=== PATIENT | male | born 1955 | race Caucasian/White ===

== ENCOUNTER → 2020-10-24 12:42 | Outpatient (REF) | payer OTHER, SELFPAY ==
--- NOTE | 2020-10-24 12:48 | CA_ITS ---
Transthoracic Echocardiogram Patient (Last, First, Middle): Daryl Muñoz G Gender: Male Date of : 1955 Age: 65 Procedure Date: 10/24/2020 Procedure Type: Transthoracic Echocardiogram Location: OP Height: 175.26 cm Weight: 97.52 kg BSA: 2.13 m2 Heart Rate: bpm BP: 137 / 82 mmHg Physical Testing Supervisor: ALEJANDRO Cavazos MD: Franklin Reis MD Tourist Camp Attendant: Sundar Velarde MD Symptoms: AFIB Study Quality: Good ECG Rhythm: Atrial Fibrillation Conclusions: - 1. Normal LV systolic function 2. Moderate biatrial enlargement 3. Normal cardiac valvular Doppler 4. Normal RV systolic pressure 5. No pericardial effusion Findings Left Ventricle Normal left ventricular size, thickness, and systolic function. The visually estimated ejection fraction is between 55-60%. Diastolic function is indeterminate on the basis of available data. Right Ventricle Normal right ventricular cavity size and systolic function. Atria Moderate biatrial enlargement. There is lipomatous hypertrophy of the interatrial septum. There is no evidence of interatrial shunt. Aortic Valve Normal aortic valve structure and function. There is no aortic valve stenosis. There is no aortic valve regurgitation. Mitral Valve Normal mitral valve structure and function. There is trace mitral valve regurgitation. There is no mitral valve stenosis. Pulmonic Valve The pulmonic valve was not well visualized. Tricuspid Valve Likely normal tricuspid valve structure and function. There is mild tricuspid valve regurgitation. The right ventricular systolic pressure is normal. The right ventricular systolic pressure is 21 mmHg. Normal right atrial pressure. There is no evidence of pulmonary hypertension. Great Vessels All visible segments of the aorta are normal in size. The pulmonary artery was not well visualized. Venous The inferior vena cava is normal in size and collapses greater than 50% with inspiration. Pericardium/Pleural There is no evidence of pericardial effusion. Prior Study Comparison No significant change compared to prior study dated: 11/19/2017. Measurements M-Mode Liner Measurements Normals - Women/Men AOV Cusps: 2.40 1.5-2.6 cm/m2 2D Linear Measurements IVSd: 0.97 0.6-0.9/0.6-1.0 cm LVIDd: 4.53 3.9-5.3/4.2-5.9 cm LVIDd Index: 2.13 2.4-3.2/2.2-3.1 cm/m2 LVIDs: 3.15 2.0-3.6 cm LVPWd: 0.95 0.7-1.1 cm Ao Root: 3.00 2.1-3.5 cm LA Diam: 3.80 2.7-3.8/3.0-4.0 cm LAIDs Index: 1.78 1.5-2.3 cm/m2 LV Mass: 182.13 67-162/88-224 g LV Mass Index: 85.51 43-95/49-115 g/m2 LVOT Diam: 2.00 3.0+(-)1.3 cm 2D Systolic Function EF 4C: 59.80 >55% EF 2C: 49.30 >55% Mitral Valve MV Pk E: 0.96 MV Decel Time: 187.00 PHT: 55.00 MVA PHT: 4.00 Decel Lucas: 5.15 Aortic Valve AoV Pk Toney: 1.04 AoV Pk Grad: 4.00 LVOT LVOT Pk Toney: 0.73 LVOT Mn Toney: 0.56 LVOT VTI: 0.15 LVOT Pk Grad: 2.00 LVOT Mn Grad: 1.00 LVOT Diam: 2.00 LVOT Area: 3.14 Diastolic Function MV Pk E: 0.96 Tricuspid Valve TR Pk Toney: 2.20 TR Pk Grad: 19.00 RA Press: 3.00 RVSP: 21.00 Great Vessels Aorta Ao Root-2D: 3.00 2.0-3.7 cm Ao Asc: 3.70 2.1-3.4 cm Ao Arch: 3.60 Pulmonary Valve PV Pk Toney: 1.11 Peak PV Grad: 5.00 Updated in Other Vendor System with Status of Final Sundar Velarde MD electronically signed on 10/25/2020 4:37:55 PM with status of Final
--- NOTE | 2020-10-24 12:49 | ECG_ITS ---
Hook-up date: 2020-10-24 13:40:00 Duration: :29:00 Test Indications: PERSISTANT AFIB Medications: [id number] QRS complexes 103 Ventricular ectopics which represent <1 % of total QRS comp. * Supraventricular ectopics which represent % of total QRS comp. * Paced QRS complexs which represent % of total QRS comp. VENTRICULAR ECTOPY 98 Isolated 0 Bigeminal Cycles 0 Couplets 0 Runs 0 Beats in Runs 0 Beats LONGEST at 0 BPM at :: -- 0 Beats FASTEST at 0 BPM at :: -- SUPRAVENTRICULAR ECTOPY * Isolated * Couplets * Runs * Beats in Runs * Beats LONGEST at * BPM at :: -- * Beats FASTEST at * BPM at :: -- HEART RATES 55 MIN at 04:10:44 2020-10-25 88 AVG 185 MAX at 17:16:41 2020-10-24 LONGEST RR 1.8400 secs at 09:07:53 2020-10-25 S-T LEVELS Channel 1 - 128 mm at 13:40:00 2020-10-24 - 128 mm at 13:40:00 2020-10-24 Channel 2 - 128 mm at 13:40:00 2020-10-24 - 128 mm at 13:40:00 2020-10-24 Channel 3 - 128 mm at 03:25:91 -- - 128 mm at 03:25:91 Basic rhythm Atrial fibrillation No long pause or profound bradycardia Borderline rate control with average HR of 88 bpm with HR as high as 185 bpm Rare Premature ventricular complexes No diary submitted Referred By: Franklin Reis Overread By: SANDRA GALEANO MD
== END ==
LOC: HO.CARD 12:42
PROVIDERS: PCP Internal Medicine; Visit Provider Internal Medicine
DX: I48.19 Other persistent atrial fibrillation (principal)
CPT/HCPCS: 93225; 93226; 93306

== ENCOUNTER → 2020-11-02 15:03 | Outpatient (BNVA) | payer OTHER, SELFPAY | PROVIDERS: PCP Internal Medicine; Visit Provider Internal Medicine | DX: I48.19 Other persistent atrial fibrillation (principal); Z79.01 Long term (current) use of anticoagulants | CPT/HCPCS: 93005 ==

== ENCOUNTER → 2021-02-22 13:13 | Outpatient (REF) | payer OTHER, SELFPAY ==
--- NOTE | 2021-02-22 13:17 | ECG_ITS ---
Hook-up date: 2021-02-22 13:29:00 Duration: 47:59:00 Test Indications: PERSISTANT AFIB Medications: [id number] QRS complexes 155 Ventricular ectopics which represent <1 % of total QRS comp. * Supraventricular ectopics which represent % of total QRS comp. * Paced QRS complexs which represent % of total QRS comp. VENTRICULAR ECTOPY 155 Isolated 0 Bigeminal Cycles 0 Couplets 0 Runs 0 Beats in Runs * Beats LONGEST at * BPM at :: -- * Beats FASTEST at * BPM at :: -- SUPRAVENTRICULAR ECTOPY * Isolated * Couplets * Runs * Beats in Runs * Beats LONGEST at * BPM at :: -- * Beats FASTEST at * BPM at :: -- HEART RATES 47 MIN at 02:38:59 2021-02-23 81 AVG 180 MAX at 14:44:59 2021-02-22 LONGEST RR 2.2160 secs at 02:38:53 2021-02-23 S-T LEVELS Channel 1 - 128 mm at 13:29:00 2021-02-22 - 128 mm at 13:29:00 2021-02-22 Channel 2 - 128 mm at 13:29:00 2021-02-22 - 128 mm at 13:29:00 2021-02-22 Channel 3 - 128 mm at 03:24:81 -- - 128 mm at 03:24:81 Basic rhythm Atrial fibrillation Adequate rate control, average HR of 81 bpm. 16% of time HR > 100 bpm with HR as high as 180 bpm. No long pause or profound bradycardia Occasional Premature ventricular complexes No diary submitted Referred By: Franklin Reis Overread By: SANDRA GALEANO MD
== END ==
LOC: HO.CARD 13:13
PROVIDERS: Visit Provider Internal Medicine
DX: I48.19 Other persistent atrial fibrillation (principal)
CPT/HCPCS: 93225; 93226

== ENCOUNTER → 2021-05-10 15:01 | Outpatient (BNVA) | payer OTHER, SELFPAY | PROVIDERS: PCP Internal Medicine; Referring Provider Internal Medicine; Visit Provider Internal Medicine ==

== ENCOUNTER 2021-05-14 15:04 | Outpatient (REF) | payer OTHER, SELFPAY ==
[2021-05-14 16:09] LABS: Anion Gap 13 (12-20); Blood Urea Nitrogen 17 mg/dL (9-16); Calcium 9.1 mg/dL (8.4-10.2); Carbon Dioxide 26 mmol/L (22-29); Chloride 105 mmol/L (96-108); Estimated Glomerular Filt Rate > 60; Glucose Random 81 mg/dL (60-115); Potassium 4.5 mmol/L (3.3-5.1); Sodium 139 mmol/L (135-145)
[2021-05-14 16:39] LABS: Digoxin < 0.3 ng/mL (0.8-2.0)
== END 2021-05-14 15:05 | disposition home or self-care (01) ==
LOC: HO.LAB 15:04
PROVIDERS: PCP Internal Medicine; Visit Provider Internal Medicine
DX: I48.19 Other persistent atrial fibrillation (principal); Z79.899 Other long term (current) drug therapy
CPT/HCPCS: 36415; 80048; 80162

== ENCOUNTER 2021-06-02 11:23 | Outpatient (REF) | payer OTHER, SELFPAY | END 2021-06-02 11:24 | disposition home or self-care (01) | LOC: HO.HMGCLDS 11:23 | PROVIDERS: PCP Internal Medicine; Visit Provider Internal Medicine | DX: Z20.822 Contact with and (suspected) exposure to COVID-19 (principal) | CPT/HCPCS: C9803; U0003; U0005 ==

== ENCOUNTER 2021-09-25 13:12 | Outpatient (REF) | payer MEDICARE, SELFPAY ==
[2021-09-25 13:24] LABS: MANUAL DIFF FLAG NO
[2021-09-25 13:55] LABS: Basophils Percent Auto 0.5 % (0-2); Hematocrit 44.4 % (42.0-52.0); Hemoglobin 15.4 g/dl (14.0-18.0); Imm Gran Abs Auto 0.03 X10*3/uL (0.00-0.03); Imm Gran Pct Auto 0.5 % (0.0-0.4); Lymphocytes Absolute Auto 1.5 X10*3/uL (1.2-4.9); Lymphocytes Percent Auto 24.1 % (20-40); Mean Corpuscular HGB Conc 34.7 g/dl (31.0-36.0); Mean Corpuscular Hemoglobin 30.9 pg (27.0-33.0); Mean Corpuscular Volume 89.2 fL (80.0-98.0); Mean Platelet Volume 9.2 fL (9.4-12.4); Monocytes Absolute Auto 0.7 X10*3/uL (0.1-1.2); Monocytes Percent Auto 10.7 % (2-11); Neutrophils Absolute Auto 3.9 x10*3/uL (2.0-8.3); Neutrophils Percent Auto 64.2 % (45-73); Platelet Count 215 X10*3/uL (160-400); Red Blood Count 4.98 X10*6/uL (4.60-5.80); Red Cell Distribution Width 11.9 % (11.0-16.0); White Blood Count 6.1 X10*3/uL (4.8-10.8)
[2021-09-25 14:30] LABS: Alanine Aminotransferase 21 U/L (0-40); Albumin Level 4.2 g/dL (3.5-5.0); Alkaline Phosphatase 55 U/L (39-117); Anion Gap 13 (12-20); Aspartate Amino Transferase 21 U/L (5-37); Blood Urea Nitrogen 15 mg/dL (9-16); Calcium 9.7 mg/dL (8.4-10.2); Carbon Dioxide 29 mmol/L (22-29); Chloride 103 mmol/L (96-108); Cholesterol 192 mg/dL; Estimated Glomerular Filt Rate > 60; Glucose Random 93 mg/dL (60-115); HDL Cholesterol 50 mg/dL; LDL Cholesterol Calculated 118 mg/dl; Magnesium 1.8 mg/dL (1.6-2.6); Potassium 4.7 mmol/L (3.3-5.1); Sodium 140 mmol/L (135-145); Total Protein 7.1 g/dL (6.5-8.0); Triglycerides 120 mg/dL
[2021-09-25 14:43] LABS: Prostate Specific Antigen Scr 0.61 ng/mL (<0.05-4.0); Thyroid Stimulating Hormone 0.95 uIU/mL (0.32-4.0)
[2021-09-25 14:57] LABS: Digoxin < 0.3 ng/mL (0.8-2.0)
[2021-09-25 15:41] LABS: Folate 18.3 ng/mL (> or = 4.0); Vitamin B12 313 pg/mL (200-900)
== END 2021-09-25 13:13 | disposition home or self-care (01) ==
LOC: HO.LAB 13:12
PROVIDERS: PCP Internal Medicine; Visit Provider Internal Medicine
DX: I48.20 Chronic atrial fibrillation, unspecified (principal); L30.9 Dermatitis, unspecified; E78.00 Pure hypercholesterolemia, unspecified
CPT/HCPCS: 36415; 80053; 80061; 80162; 82607; 82746; 83735; 84153; 84439; 84443; 85025

== ENCOUNTER → 2021-10-29 10:38 | Outpatient (REF) | payer MEDICARE, SELFPAY ==
--- NOTE | 2021-10-29 10:42 | HM_ITS ---
* Total monitoring time 2 days and 23 hours. * Underlying rhythm is atrial fibrillation. Average rate 74/Min. Range 46 to 189/Min. * About 6% of the time, rate greater than 100. No significant bradycardia. 12 pauses; longest 2.8 seconds during sleep hours. * Rare ventricular ectopy with minimal burden. Mostly isolated. 51 couplets. 4 very brief runs, longest 4 beats. Aberrant conduction cannot be excluded. * No patient events. * Less than optimal rate control of atrial fibrillation with evidence of rapid rates. MTDD
== END ==
LOC: HO.CARD 10:38
PROVIDERS: Visit Provider Internal Medicine
DX: I48.19 Other persistent atrial fibrillation (principal)
CPT/HCPCS: 93242

== ENCOUNTER → 2021-11-19 07:47 | Outpatient (BNVA) | payer MEDICARE, SELFPAY | PROVIDERS: PCP Internal Medicine; Referring Provider Internal Medicine; Visit Provider Internal Medicine | DX: I48.19 Other persistent atrial fibrillation (principal); Z79.01 Long term (current) use of anticoagulants | CPT/HCPCS: 93005; 99212 ==

== ENCOUNTER → 2021-12-31 09:32 | Outpatient (REF) | payer MEDICARE, SELFPAY | LOC: HO.SL 09:32 | PROVIDERS: PCP Internal Medicine; Visit Provider Internal Medicine | DX: G47.33 Obstructive sleep apnea (adult) (pediatric) (principal) | CPT/HCPCS: 95806 ==

== ENCOUNTER 2022-02-13 11:13 | Outpatient (REF) | payer MEDICARE, SELFPAY ==
[2022-02-13 11:23] LABS: MANUAL DIFF FLAG NO
[2022-02-13 11:56] LABS: Basophils Percent Auto 0.8 % (0-2); Eosinophils Percent Auto 0.2 % (0-4); Hematocrit 44.3 % (42.0-52.0); Hemoglobin 15.4 g/dl (14.0-18.0); Imm Gran Abs Auto 0.01 X10*3/uL (0.00-0.03); Imm Gran Pct Auto 0.2 % (0.0-0.4); Lymphocytes Absolute Auto 1.2 X10*3/uL (1.2-4.9); Lymphocytes Percent Auto 23.5 % (20-40); Mean Corpuscular HGB Conc 34.8 g/dl (31.0-36.0); Mean Corpuscular Volume 89.3 fL (80.0-98.0); Mean Platelet Volume 9.5 fL (9.4-12.4); Monocytes Absolute Auto 0.6 X10*3/uL (0.1-1.2); Monocytes Percent Auto 11.7 % (2-11); Neutrophils Absolute Auto 3.3 x10*3/uL (2.0-8.3); Neutrophils Percent Auto 63.6 % (45-73); Platelet Count 234 X10*3/uL (160-400); Red Blood Count 4.96 X10*6/uL (4.60-5.80); Red Cell Distribution Width 11.9 % (11.0-16.0); White Blood Count 5.2 X10*3/uL (4.8-10.8)
[2022-02-13 12:56] LABS: Alanine Aminotransferase 18 U/L (0-40); Alkaline Phosphatase 55 U/L (39-117); Anion Gap 11 (12-20); Aspartate Amino Transferase 19 U/L (5-37); Bilirubin Total 1.1 mg/dL (0.0-1.0); Blood Urea Nitrogen 19 mg/dL (9-16); Carbon Dioxide 28 mmol/L (22-29); Chloride 106 mmol/L (96-108); Estimated Glomerular Filt Rate > 60; Glucose Random 103 mg/dL (60-115); Potassium 4.8 mmol/L (3.3-5.1); Sodium 140 mmol/L (135-145); Total Protein 6.9 g/dL (6.5-8.0)
[2022-02-13 13:53] LABS: Digoxin 0.4 ng/mL (0.8-2.0)
== END 2022-02-13 11:14 | disposition home or self-care (01) ==
LOC: HO.LAB 11:13
PROVIDERS: PCP Internal Medicine; Visit Provider Internal Medicine
DX: I48.20 Chronic atrial fibrillation, unspecified (principal)
CPT/HCPCS: 36415; 80053; 80162; 85025

== ENCOUNTER → 2022-11-13 09:44 | Outpatient (REF) | payer MEDICARE, SELFPAY ==
--- NOTE | 2022-11-13 09:53 | CA_ITS ---
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 Low normal LV systolic function with LVEF 50-55% 2. Mildly reduced RV systolic function 3. Mildly dilated left atrium 4. Mild mitral calcification with normal cardiac valvular Doppler 5. Normal RV systolic pressure 6. No gross pericardial effusion Findings Left Ventricle Normal left ventricular cavity size. There is mildly increased left ventricular wall thickness. The left ventricular systolic function is low normal. The visually estimated ejection fraction is between 50-55%. Diastolic function is indeterminate on the basis of available data. Right Ventricle Normal right ventricular cavity size. There is mildly decreased right ventricular systolic function. Atria The left atrium is mildly dilated. There is lipomatous hypertrophy of the interatrial septum. There is no evidence of interatrial shunt. The right atrium is likely dilated. Aortic Valve The aortic valve structure and function is likely normal. There is no aortic valve stenosis. There is no aortic valve regurgitation. Mitral Valve There is mild anterior and posterior mitral leaflet thickening. There is mild mitral annular calcification. There is trace mitral valve regurgitation. Pulmonic Valve The pulmonic valve is likely normal. There is trace to mild pulmonic valve regurgitation. Tricuspid Valve There is trace tricuspid valve regurgitation. The right ventricular systolic pressure is normal. The right ventricular systolic pressure is 23 mmHg. There is no evidence of pulmonary hypertension. Great Vessels The pulmonary artery was not well visualized. There is mild dilatation of the ascending aorta measuring 3.90 cm. Venous The inferior vena cava is normal in size and collapses greater than 50% with inspiration. Pericardium/Pleural There is no evidence of pericardial effusion. Measurements 2D Linear Measurements IVSd: 1.23 0.6-0.9/0.6-1.0 cm LVIDd: 5.22 3.9-5.3/4.2-5.9 cm LVIDd Index: 2.49 2.4-3.2/2.2-3.1 cm/m2 LVIDs: 3.37 2.0-3.6 cm LVPWd: 0.89 0.7-1.1 cm LA Diam: 3.60 2.7-3.8/3.0-4.0 cm LAIDs Index: 1.71 1.5-2.3 cm/m2 LV Mass: 263.51 67-162/88-224 g LV Mass Index: 125.48 43-95/49-115 g/m2 LVOT Diam: 2.40 3.0+(-)1.3 cm 2D Systolic Function EF 4C: 50.80 >55% EF 2C: 51.80 >55% EF BiP: 50.60 >55% Mitral Valve MV Pk E: 0.93 MV Decel Time: 172.00 E'Lateral: 11.30 E'Medial: 7.83 E/E' Med: 11.90 E/E' Lat: 8.30 PHT: 51.00 MVA PHT: 4.[address] [place]: 5.42 Aortic Valve AoV Pk Toney: 0.89 AoV Pk Grad: 3.00 LVOT LVOT Pk Toney: 0.76 LVOT Mn Toney: 0.52 LVOT VTI: 0.14 LVOT Pk Grad: 2.00 LVOT Mn Grad: 1.00 LVOT Diam: 2.40 LVOT Area: 4.52 Diastolic Function MV Pk E: 0.93 E'Medial: 7.83 E/E' Med: 11.90 E' Laterial: 11.30 E/E' Lat: 8.30 Right Ventricle TAPSE (mm): 15.50 TVS' Toney: 9.10 Tricuspid Valve TR Pk Toney: 2.21 TR Pk Grad: 20.00 RA Press: 3.00 RVSP: 23.00 Great Vessels Aorta Sinus of Valsalva: 3.55 2.0-3.[address] [place]: 3.26 1.7-3.4 cm Ao Asc: 3.90 2.1-3.4 cm Updated in Other Vendor System with Status of Final Sundar Velarde MD electronically signed on 11/14/2022 1:23:01 PM with status of Final
== END ==
LOC: HO.CARD 09:44
PROVIDERS: PCP Internal Medicine; Visit Provider Internal Medicine
DX: I48.19 Other persistent atrial fibrillation (principal)
CPT/HCPCS: 93306

== ENCOUNTER → 2022-12-04 09:38 | Outpatient (BNVA) | payer MEDICARE, SELFPAY | PROVIDERS: PCP Internal Medicine; Referring Provider Internal Medicine; Visit Provider Internal Medicine | DX: I48.19 Other persistent atrial fibrillation (principal); Z79.01 Long term (current) use of anticoagulants | CPT/HCPCS: 93005; 99212 ==

== ENCOUNTER 2023-01-23 09:03 | Outpatient (REF) | payer MEDICARE, SELFPAY ==
[2023-01-23 09:13] LABS: MANUAL DIFF FLAG NO
[2023-01-23 09:32] LABS: Basophils Percent Auto 0.4 % (0-2); Hematocrit 43.1 % (42.0-52.0); Hemoglobin 14.8 g/dl (14.0-18.0); Imm Gran Abs Auto 0.02 X10*3/uL (0.00-0.03); Imm Gran Pct Auto 0.4 % (0.0-0.4); Lymphocytes Absolute Auto 1.2 X10*3/uL (1.2-4.9); Lymphocytes Percent Auto 21.4 % (20-40); Mean Corpuscular HGB Conc 34.3 g/dl (31.0-36.0); Mean Corpuscular Hemoglobin 31.4 pg (27.0-33.0); Mean Corpuscular Volume 91.3 fL (80.0-98.0); Mean Platelet Volume 9.1 fL (9.4-12.4); Monocytes Absolute Auto 0.7 X10*3/uL (0.1-1.2); Neutrophils Absolute Auto 3.5 x10*3/uL (2.0-8.3); Neutrophils Percent Auto 64.8 % (45-73); Platelet Count 210 X10*3/uL (160-400); Red Blood Count 4.72 X10*6/uL (4.60-5.80); Red Cell Distribution Width 12.2 % (11.0-16.0); White Blood Count 5.4 X10*3/uL (4.8-10.8)
[2023-01-23 11:15] LABS: Alanine Aminotransferase 20 U/L (0-40); Albumin Level 3.9 g/dL (3.5-5.0); Alkaline Phosphatase 46 U/L (39-117); Anion Gap 13 (12-20); Aspartate Amino Transferase 19 U/L (5-37); Bilirubin Total 1.3 mg/dL (0.0-1.0); Blood Urea Nitrogen 16 mg/dL (9-16); Calcium 9.1 mg/dL (8.4-10.2); Carbon Dioxide 25 mmol/L (22-29); Chloride 106 mmol/L (96-108); Cholesterol 161 mg/dL; Estimated Glomerular Filt Rate > 60; Free T4 (Free Thyroxine) 1.02 ng/dL (0.71-1.85); Glucose Random 103 mg/dL (60-115); HDL Cholesterol 55 mg/dL; LDL Cholesterol Calculated 93 mg/dl; Potassium 4.3 mmol/L (3.3-5.1); Prostate Specific Antigen Scr 1.14 ng/mL (<0.05-4.0); Sodium 140 mmol/L (135-145); Thyroid Stimulating Hormone 1.19 uIU/mL (0.32-4.0); Total Protein 6.7 g/dL (6.5-8.0); Triglycerides 67 mg/dL
[2023-01-23 11:17] LABS: Folate 15.4 ng/mL (> or = 4.0); Vitamin B12 212 pg/mL (200-900)
[2023-01-23 11:21] LABS: Digoxin < 0.2 ng/mL (0.8-2.0)
== END 2023-01-23 09:04 | disposition home or self-care (01) ==
LOC: HO.LAB 09:03
PROVIDERS: PCP Internal Medicine; Visit Provider Internal Medicine
DX: I48.20 Chronic atrial fibrillation, unspecified (principal); E78.00 Pure hypercholesterolemia, unspecified; Z12.5 Encounter for screening for malignant neoplasm of prostate
CPT/HCPCS: 36415; 80053; 80061; 80162; 82607; 82746; 84153; 84439; 84443; 85025

== ENCOUNTER 2023-02-27 14:11 | Outpatient (AMB) | payer MEDICARE, SELFPAY ==
[2023-02-27 14:22] VITALS: BP 130/74; PULSE 97; O2SAT 97; BMI 31.2
--- NOTE | 2023-02-27 14:22 | MHC.PC.OV ---
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 Required: No Allergies No Known Allergies [No Known Allergies*] Allergy (Verified 02/27/23 14:44) Medication List - Last Reconciled 02/27/23 by SAPPHIRE Agrawal apixaban (Eliquis) 5 mg PO BID 90 days digoxin 125 mcg PO DAILY 90 days metoprolol tartrate 25 mg PO BID 90 days Tobacco use date assessed: 02/27/23 Fall risk assessment: No Falls in past year Last assessed Fall Risk: 02/27/23 HPI night sweats and leg rash HPI Details Patient is a 67-year-old male who presents today for an office visit with intermittent night sweats at night since 2019, most likely started after being sick with COVID per pt. Patient of Dr. Feliciano. Medical history significant for AFib, obesity, BPH, ulcerative colitis, impaired fasting glucose among others. Patient reports that he has sweating only when he sleeps, he does not have any sweating during the day, does have some sweating when he works physically. Reports intermittent cough in the morning when waking up with sputum production, denies cough during the day, no hemoptysis. Denies fever or chills, denies weight loss. He is here for an evaluation. Patient did have blood work 01/23/2023 with no acute findings. Denies exposure to TB. Reports sleeping with heavy blankets on. PENDING SALE TO [facility] Medical History BPH (benign prostatic hyperplasia) Chronic atrial fibrillation residential current use of anticoagulant Obesity (BMI 30-39.9) Ulcerative colitis Surgical History History of cataract surgery History of vasectomy Family History Father Cancer Mother No problems noted. Social History Housing: House Alcohol intake: current Patient Tobacco Use Status: Former Tobacco user Quit Date: 1991 Smoked: 30 +/- quit 1989 e-Cigarette/Vaping Use: Never Used Second Hand Smoke Exposure: No Current occupational status: retired Cognitive needs: No Hearing needs: No Vision needs: Yes Questionnaire Thrive Questionnaire Date Thrive assessed: 01/31/23 AUDIT C Alcohol Use Questionnaire (AUDIT-C) 1. How often do you have a drink containing alcohol?: 2-4 times a month 2. How many drinks containing alcohol do you have on a typical day when you are drinking?: 1 or 2 3. How often do you have six or more drinks on one occasion?: Never Total Score: 2 Score Reviewed/Action Taken: No MARISA-7 AMB Questionnaire MARISA-7 Date MARISA - 7 assessed: 09/25/21 Source: Developed by Drs. Otf Gant, Mary Mehta, Deonte Cao and colleagues, with an educational pankaj from [employer]. Review of Systems Const Denies body aches, Denies chills, Denies fever(s), Denies headache(s) and Reports night sweats Eyes Denies change in vision ENT Denies dizziness, Denies otalgia, Denies headache(s), Denies nasal discharge, Denies sinus pain and Denies sore throat Card Denies chest pain, Denies edema, Denies lightheadedness and Denies dyspnea Resp Denies chest congestion, Denies cough, Denies hemoptysis, Denies dyspnea and Denies wheezing GI Denies abdominal pain Denies dysuria Musc Denies myalgias Skin/Breast Denies rash Neuro Denies dizziness and Denies headache(s) Aller/Immun Denies wheezing Physical exam (Primary Care) Vital Signs: Last Vital Signs Pulse 97 02/27/23 14:22 BP 130/74 02/27/23 14:22 Pulse Ox 97 02/27/23 14:22 Oxygen Delivery Method Room Air 02/27/23 14:22 BMI result Body Mass Index 31.2 Tobacco/Smoking Status: Tobacco use Status Tobacco use date assessed 02/27/23 02/27/23 14:26 Patient Tobacco Use Status Former Tobacco user 02/27/23 14:26 e-Cigarette/Vaping Use Never Used 02/27/23 14:26 Thrive Assessment: Date of Thrive Assessment Date Thrive assessed 01/31/23 02/27/23 14:26 Const General: cooperative and no acute distress Orientation/consciousness: patient oriented x3 HENMT Head: Yes normocephalic and Yes atraumatic Face and sinus: Yes sinuses nontender Mouth: oropharynx normal and moist mucous membranes Throat: Yes posterior oropharynx normal Eyes General: appearance normal, both eyes and all related structures Neck Neck: Yes normal visual inspection, Yes full ROM and Yes no lymphadenopathy Resp Effort & Inspection: normal respiratory effort and able to speak in complete sentences Auscultation: clear to auscultation bilaterally, no crackles, no rales, no rhonchi and no wheezes Cardio Rate: regular rate Rhythm: regular rhythm Heart sounds: S1 normal heart sound present and S2 normal heart sound present GI Auscultation: normal bowel sounds Skin General skin exam: no rashes or lesions noted Neuro General: patient oriented x3 Gait exam (Neuro): Normal gait present Extrem General: Yes full ROM and No edema Assessment and Plan Assessment & Plan (1) Screening for tuberculosis: Code(s): Z11.1 - Encounter for screening for respiratory tuberculosis Plan: Patient presents today with intermittent night sweats since 2019, recent blood work with no acute findings. Will screen for tuberculosis. Patient was advised to sleep with less blankets at night. Will notify of the test result. Patient agreed with the plan. Keep appointment with PCP as scheduled or follow-up sooner as needed. Orders: Orders T Spot TB Today Z11.1 - Encounter for screening for respiratory tuberculosis Coding Level of Care Code Est Pt Level 3 (08473) Diagnoses Screening for tuberculosis Z11.1
== END 2023-02-27 15:20 | disposition home or self-care (01) ==
PROVIDERS: PCP Internal Medicine; Visit Provider Nurse Practitioner Family
DX: Z11.1 Encounter for screening for respiratory tuberculosis (principal)
CPT/HCPCS: 99213

== ENCOUNTER 2023-02-27 14:56 | Outpatient (REF) | payer MEDICARE, SELFPAY ==
[2023-03-02 00:44] LABS: TS Negative Control Passed; TS Panel A 0; TS Panel B 0; TS Positive Control Passed; TSpotTB Negative (Negative)
== END 2023-02-27 14:57 | disposition home or self-care (01) ==
LOC: HO.LAB 14:56
PROVIDERS: PCP Internal Medicine; Visit Provider Nurse Practitioner Family
DX: Z11.1 Encounter for screening for respiratory tuberculosis (principal)
CPT/HCPCS: 36415; 86481

== ENCOUNTER 2023-08-06 09:28 | Outpatient (AMB) | payer MEDICARE, SELFPAY ==
[2023-08-06 09:30] VITALS: BP 120/90; PULSE 79; O2SAT 96; BMI 32.5
--- NOTE | 2023-08-06 09:30 | A.OFFPC_ITS ---
Vital Signs 08/06/23 09:30 08/06/23 10:30 Height 5 ft 9 in Weight 220 lb BMI 32.5 BP 120/90 H 124/80 Blood Pressure Location Lt brachial Lt brachial Position Sitting Sitting Pulse 79 Pulse Source Pulse Oximeter Pulse Oximetry (%) 96 Oxygen Delivery Method Room Air Intake Visit Reasons: IGT, A fib Benzene Still Utility Operator Required: No Accompanied by: Self / Same As Patient Allergies No Known Allergies [No Known Allergies*] Allergy (Verified 08/06/23 09:30) Medication List - Last Reconciled 08/06/23 by Daxa Feliciano MD apixaban (Eliquis) 5 mg PO BID 90 days digoxin 125 mcg PO DAILY 90 days metoprolol tartrate 25 mg PO BID 90 days Tobacco use date assessed: 02/27/23 Fall risk assessment: No Falls in past year Last assessed Fall Risk: 08/06/23 Dental Screening Dental Screen Date: 08/06/23 Did you have a dental visit in the last 12 months?: Yes Did you have a dental problem in the last 6 months where you did not have access to dental care?: No Was dental information given to patient?: Patient has dentist HPI IGT, A fib HPI Details 67-year-old obese male with atrial fibri llation ulcerative colitis BPH impaired glucose tolerance coming in for follow-up. Patient was last seen in January 2023. Patient's colonoscopy is up-to-date. state complains of sweating a lot, complains of dry mouth, mood instability, groin itchiness, sweatiness is better presently and deny groin rash, no frequency presently, thirsty a lot. 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 Social History Housing: House Alcohol intake: current Patient Tobacco Use Status: Former Tobacco user Quit Date: 1991 Years Smoked: 30 +/- quit 1989 e-Cigarette/Vaping Use: Never Used Second Hand Smoke Exposure: No Current occupational status: retired Cognitive needs: No Hearing needs: No Vision needs: Yes Questionnaire Thrive Questionnaire Date Thrive assessed: 01/31/23 MARISA-7 AMB Questionnaire MARISA-7 Date MARISA - 7 assessed: 09/25/21 Source: Developed by Drs. Otf Gant, Mary Mehta, Deonte Cao and colleagues, with an educational pankaj from [employer]. Physical exam (Primary Care) Vital Signs: Last Vital Signs Pulse 79 08/06/23 09:30 BP 120/90 H 08/06/23 09:30 Pulse Ox 96 08/06/23 09:30 Oxygen Delivery Method Room Air 08/06/23 09:30 BMI result Body Mass Index 32.5 Tobacco/Smoking Status: Tobacco use Status Tobacco use date assessed 02/27/23 08/06/23 09:32 Patient Tobacco Use Status Former Tobacco user 08/06/23 09:32 e-Cigarette/Vaping Use Never Used 08/06/23 09:32 Thrive Assessment: Date of Thrive Assessment Date Thrive assessed 01/31/23 08/06/23 09:32 Const General: alert; No acute distress Eyes Conjunctivae: conjunctivae normal Resp Auscultation: clear to auscultation bilaterally Cardio Rate: regular rate Rhythm: regular rhythm GI Inspection: Yes normal to inspection Extrem General: Yes normal to inspection and No edema Office Procedures Flu Questionnaire Does the patient have a severe egg allergy?: No Does the patient have severe life threatening allergies?: No Does the patient have a fever or illness today?: No Has the patient ever had Guillain-Keystone Syndrome?: No Has the patient ever had any past reaction to a flu shot?: No Immunizations flu vacc [id number] 6mos up(PF) 60 mcg(15 mcgx4)/0.5 mL IM syringe Performing Provider: Daxa Felciiano MD Performing Location: [facility] Administered by: VALERIANO Langford on 08/06/23 09:37 Dose Route Admin Location Dispensed Lot Number Expiration Date NDC Supervisor Blood [employer] 0.5 mL IM Left Deltoid 0.5 mL [id number] 02/08/24 93505-604-60 eegoes VIS Given Date VIS Provided VIS Publication Date 08/06/23 Single Vaccine 21 Eligibility Eligibility Date Funding Source Not [facility] Eligible 08/06/23 Private Assessment and Plan Assessment & Plan (1) Chronic atrial fibrillation: Comment: 2017 Dr. Reis Code(s): I48.20 - Chronic atrial fibrillation, unspecified Plan: Presently continue with anticoagulation and digoxin (2) Obesity (BMI 30-39.9): Code(s): E66.9 - Obesity, unspecified Plan: Diet and exercise (3) Ulcerative colitis: Comment: Dr. Mtz Code(s): K51.90 - Ulcerative colitis, unspecified, without complications Plan: Stable (4) BPH (benign prostatic hyperplasia): Comment: July 2019 Code(s): N40.0 - Benign prostatic hyperplasia without lower urinary tract symptoms Plan: Stable (5) Impaired fasting glucose: Code(s): R73.01 - Impaired fasting glucose Plan: Decrease the amount of carbohydrate intake, pasta, bread, rice and potatoes are all sugar and that is aside from all the sweet stuff, remember that fruits are good but they are Sweet also. (6) Hyperhidrosis: Code(s): R61 - Generalized hyperhidrosis Orders: Orders Thyroid Stimulating Hormone Today I48.20 - Chronic atrial fibrillation, unspecified B Type Natriuretic Peptide Today I48.20 - Chronic atrial fibrillation, unspecified Influenza [id number] Immunization Today Z23 - Encounter for immunization Free T4 (Free Thyroxine) Today I48.20 - Chronic atrial fibrillation, unspecified Magnesium Today I48.20 - Chronic atrial fibrillation, unspecified Coding Level of Care Code Est Pt Level 4 (29452) Diagnoses Chronic atrial fibrillation I48.20 Obesity (BMI 30-39.9) E66.9 Ulcerative colitis K51.90 BPH (benign prostatic hyperplasia) N40.0 Impaired fasting glucose R73.01 Hyperhidrosis R61
[2023-08-06 10:30] VITALS: BP 124/80
== END 2023-08-06 10:35 | disposition home or self-care (01) ==
PROVIDERS: PCP Internal Medicine; Visit Provider Internal Medicine
DX: I48.20 Chronic atrial fibrillation, unspecified (principal); K51.90 Ulcerative colitis, unspecified, without complications; E66.9 Obesity, unspecified; Z68.32 Body mass index [BMI] 32.0-32.9, adult; Z23 Encounter for immunization; N40.0 Benign prostatic hyperplasia without lower urinary tract symptoms; R73.01 Impaired fasting glucose; R61 Generalized hyperhidrosis
CPT/HCPCS: 90471; 90686; 99214

== ENCOUNTER 2023-08-06 10:41 | Outpatient (REF) | payer MEDICARE, SELFPAY ==
[2023-08-06 11:04] LABS: MANUAL DIFF FLAG NO
[2023-08-06 11:11] LABS: Basophils Percent Auto 0.3 % (0-2); Hematocrit 44.1 % (42.0-52.0); Hemoglobin 15.3 g/dl (14.0-18.0); Imm Gran Abs Auto 0.03 X10*3/uL (0.00-0.03); Imm Gran Pct Auto 0.5 % (0.0-0.4); Lymphocytes Absolute Auto 1.2 X10*3/uL (1.2-4.9); Lymphocytes Percent Auto 20.2 % (20-40); Mean Corpuscular HGB Conc 34.7 g/dl (31.0-36.0); Mean Corpuscular Hemoglobin 31.6 pg (27.0-33.0); Mean Corpuscular Volume 91.1 fL (80.0-98.0); Mean Platelet Volume 9.2 fL (9.4-12.4); Monocytes Absolute Auto 0.7 X10*3/uL (0.1-1.2); Monocytes Percent Auto 11.6 % (2-11); Neutrophils Percent Auto 67.4 % (45-73); Platelet Count 206 X10*3/uL (160-400); Red Blood Count 4.84 X10*6/uL (4.60-5.80); Red Cell Distribution Width 11.9 % (11.0-16.0); White Blood Count 5.9 X10*3/uL (4.8-10.8)
[2023-08-06 11:42] LABS: B Type Natriuretic Peptide 139 pg/mL (<100)
[2023-08-06 11:54] LABS: Alanine Aminotransferase 29 U/L (0-40); Alkaline Phosphatase 52 U/L (39-117); Anion Gap 12 (12-20); Aspartate Amino Transferase 24 U/L (5-37); Bilirubin Total 0.9 mg/dL (0.0-1.0); Blood Urea Nitrogen 18 mg/dL (9-16); Calcium 9.4 mg/dL (8.4-10.2); Carbon Dioxide 29 mmol/L (22-29); Chloride 104 mmol/L (96-108); Cholesterol 173 mg/dL (<200); Estimated Glomerular Filt Rate > 60; Glucose Random 111 mg/dL (60-115); HDL Cholesterol 60 mg/dL (>40); LDL Cholesterol Calculated 104 mg/dL (<100); Magnesium 1.9 mg/dL (1.6-2.6); Potassium 4.7 mmol/L (3.3-5.1); Sodium 140 mmol/L (135-145); Triglycerides 47 mg/dL (<150)
[2023-08-06 12:10] LABS: Free T4 (Free Thyroxine) 0.96 ng/dL (0.71-1.85); Thyroid Stimulating Hormone 0.81 uIU/mL (0.32-4.0)
[2023-08-06 12:22] LABS: Estimated Average Glucose 100 mg/dL; Hemoglobin A1c % 5.1 % (<6.0)
== END 2023-08-06 10:42 | disposition home or self-care (01) ==
LOC: HO.LAB 10:41
PROVIDERS: PCP Internal Medicine; Visit Provider Internal Medicine
DX: I48.20 Chronic atrial fibrillation, unspecified (principal); R73.01 Impaired fasting glucose; E78.00 Pure hypercholesterolemia, unspecified
CPT/HCPCS: 36415; 80053; 80061; 83036; 83735; 83880; 84439; 84443; 85025

== ENCOUNTER 2023-12-04 10:05 | Outpatient (AMB) | payer OTHER, SELFPAY ==
[2023-12-04 10:09] VITALS: BP 120/70; PULSE 82; O2SAT 98; BMI 68.7
--- NOTE | 2023-12-04 10:09 | A.OFFVIS_ITS ---
Vital Signs 12/04/23 10:09 Height 5 ft 9 in Weight 465 lb 2.806 oz BMI 68.7 BP 120/70 Blood Pressure Location Lt brachial Position Sitting Pulse 82 Pulse Source Monitor Pulse Oximetry (%) 98 Oxygen Delivery Method Room Air Intake Visit Reasons: 1 yr f/up Allergies No Known Allergies [No Known Allergies*] Allergy (Verified 08/06/23 09:30) Medication List - Last Reconciled 12/04/23 by Franklin Reis MD apixaban (Eliquis) 5 mg PO BID 90 days digoxin 125 mcg PO DAILY 90 days metoprolol tartrate 25 mg PO BID HPI Comments Details: Daryl returns for follow-up regarding atrial fibrillation. Detected around 2018. At that time, attempted cardioversion but not successful. Since then, has been essentially in atrial fibrillation on rate control. He is generally doing good. No cardiac symptoms whatsoever. In the past, excessive alcohol use but nothing recently. [facility] Medical History (Updated 08/06/23 @ 10:26 by Daxa Feliciano MD) Screening for tuberculosis intermediate current use of anticoagulant BPH (benign prostatic hyperplasia) Ulcerative colitis Obesity (BMI 30-39.9) Chronic atrial fibrillation Surgical History History of vasectomy History of cataract surgery Family History Father Cancer Mother No problems noted. Social History Housing: House Alcohol intake: current Patient Tobacco Use Status: Former Tobacco user Quit Date: 1991 Years Smoked: 30 +/- quit 1989 e-Cigarette/Vaping Use: Never Used Second Hand Smoke Exposure: No Current occupational status: retired Cognitive needs: No Hearing needs: No Vision needs: Yes Review of Systems Const Denies weakness ENT Denies dizziness Card Denies chest pain, Denies chest pain with activity, Denies syncope, Denies rapid heart rate, Denies pedal edema, Denies edema, Denies leg edema, Denies lightheadedness, Denies palpitations, Denies dyspnea, Denies dyspnea on exertion and Denies orthopnea Resp Denies cough, Denies dyspnea and Denies dyspnea on exertion GI Denies hematochezia and Denies change in stool character Musc Denies abnormal gait, Denies muscle cramps, Denies muscle weakness, Denies numbness, Denies radiating pain into limb and Denies tingling Neuro Denies abnormal gait, Denies dizziness, Denies syncope, Denies numbness, Denies tingling and Denies weakness Endo Denies palpitations Physical Exam Vital Signs: Last Vital Signs Pulse 82 12/04/23 10:09 BP 120/70 12/04/23 10:09 Pulse Ox 98 12/04/23 10:09 Oxygen Delivery Method Room Air 12/04/23 10:09 BMI result Body Mass Index 68.7 Const General: comfortable and no acute distress Orientation/consciousness: patient oriented x3 HEENT Other: Unremarkable Head: Yes normal to inspection Neck Neck: Yes normal visual inspection Chest Chest palpation & inspection: normal inspection of the chest Resp Auscultation: clear to auscultation bilaterally Cardio Palpation: normal PMI Heart sounds: S1 normal heart sound present, S2 normal heart sound present, no gallops, no murmurs and no rubs GI Palpation (GI): Soft to palpation Back/Spine/Pelvis Other: unremarkable Skin General skin exam: no rashes or lesions noted Neuro General: patient oriented x3 Extrem General: Yes normal to inspection Psych Mental Status: mental status grossly normal Office Procedures EKG Details: EKG shows atrial fibrillation with a ventricular rate of 82/Min; nonspecific T inversions in the inferior leads. [id number], Complete Assessment & Plan Assessment & Plan (1) Persistent atrial fibrillation: Code(s): I48.19 - Other persistent atrial fibrillation Category: Medical Plan: Continue metoprolol and digoxin. Sleep study in the past without any clear evidence of CELIA. 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 Stable renal function. Coding Level of Care Code Est Pt Level 3 (39520) Diagnoses Persistent atrial fibrillation I48.19 intermediate current use of anticoagulant Z79.01 CPT Codes EKG - CPT: 78682-[id number], Complete ([id number])
== END 2023-12-04 10:28 | disposition home or self-care (01) ==
PROVIDERS: PCP Internal Medicine; Visit Provider Internal Medicine
DX: I48.19 Other persistent atrial fibrillation (principal); Z79.01 Long term (current) use of anticoagulants
CPT/HCPCS: 93010; 99213

== ENCOUNTER → 2023-12-04 10:05 | Outpatient (BNVA) | payer OTHER, SELFPAY | PROVIDERS: PCP Internal Medicine; Visit Provider Internal Medicine | DX: I48.19 Other persistent atrial fibrillation (principal); Z79.01 Long term (current) use of anticoagulants; Z79.899 Other long term (current) drug therapy | CPT/HCPCS: 93005 ==

== ENCOUNTER 2024-06-01 11:03 | Outpatient (AMB) | payer OTHER, SELFPAY ==
[2024-06-01 11:09] VITALS: BP 120/64; PULSE 90; BMI 32.2
--- NOTE | 2024-06-01 11:09 | A.OFFVIS_ITS ---
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 Detected around 2018. At that time, attempted cardioversion but not successful. Since then, has been essentially in atrial fibrillation on rate control. Overall, he states he feels fine. No new issues. He used to have excessive alcohol use but he states these days he is not doing that. [facility] Medical History (Updated 08/06/23 @ 10:26 by Daxa Feliciano MD) Screening for tuberculosis jail current use of anticoagulant BPH (benign prostatic hyperplasia) Ulcerative colitis Obesity (BMI 30-39.9) Chronic atrial fibrillation Surgical History History of vasectomy History of cataract surgery Family History Father Cancer Mother No problems noted. Social History Housing: House Alcohol intake: current Patient Tobacco Use Status: Former Tobacco user Years Smoked: 30 +/- quit 1989 e-Cigarette/Vaping Use: Never Used Second Hand Smoke Exposure: No Current occupational status: retired Cognitive needs: No Hearing needs: No Vision needs: Yes Review of Systems Const Denies chills, Denies fatigue, Denies fever(s), Denies frequent falls, Denies weakness, Denies weight gain and Denies weight loss ENT Denies dizziness Card Denies chest pain, Denies leg edema, Denies lightheadedness, Denies palpitations, Denies dyspnea and Denies dyspnea on exertion Resp Denies cough, Denies dyspnea and Denies dyspnea on exertion GI Denies hematochezia Musc Denies abnormal gait, Denies muscle weakness, Denies numbness, Denies radiating pain into limb and Denies tingling Neuro Denies abnormal gait, Denies dizziness, Denies frequent falls, Denies numbness, Denies tingling and Denies weakness Endo Denies fatigue and Denies palpitations Physical Exam Vital Signs: Last Vital Signs Pulse 90 06/01/24 11:09 BP 120/64 06/01/24 11:09 BMI result Body Mass Index 32.2 Const General: comfortable and no acute distress Orientation/consciousness: patient oriented x3 HEENT Other: Unremarkable Head: Yes normal to inspection Neck Neck: Yes normal visual inspection Chest Chest palpation & inspection: normal inspection of the chest Resp Auscultation: clear to auscultation bilaterally Cardio Palpation: normal PMI Heart sounds: S1 normal heart sound present, S2 normal heart sound present, no gallops, no murmurs and no rubs GI Palpation (GI): Soft to palpation Back/Spine/Pelvis Other: unremarkable Skin General skin exam: no rashes or lesions noted Neuro General: patient oriented x3 Extrem General: Yes normal to inspection Psych Mental Status: mental status grossly normal Assessment & Plan Assessment & Plan (1) Persistent atrial fibrillation: Code(s): I48.19 - Other persistent atrial fibrillation Category: Medical Plan: Continue metoprolol and digoxin. Sleep study in the past without any clear evidence of CELIA. Check digoxin levels. Check Holter to evaluate for adequacy of rate control. Echocardiogram for any LV dysfunction. 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 Recheck labs. Plan Total time spent including review of data, counseling, documentation, coordination of care-31 minutes. Orders: Orders CA echo transthoracic complete Today I48.20 - Chronic atrial fibrillation, unspecified ECG 3 day holter monitor Today I48.20 - Chronic atrial fibrillation, unspecifi ed Digoxin Today I48.20 - Chronic atrial fibrillation, unspecified Complete Blood Count no Diff Today I48.20 - Chronic atrial fibrillation, unspec ified Basic Metabolic Panel Today I48.20 - Chronic atrial fibrillation, unspecified, I50.9 - Heart failure, unspecified Coding Level of Care Code Est Pt Level 4 (55373) Diagnoses Persistent atrial fibrillation I48.19 jail current use of anticoagulant Z79.01
== END 2024-06-01 11:25 | disposition home or self-care (01) ==
PROVIDERS: PCP Family Medicine; Visit Provider Internal Medicine
DX: I48.19 Other persistent atrial fibrillation (principal); Z79.01 Long term (current) use of anticoagulants
CPT/HCPCS: 99214

== ENCOUNTER → 2024-06-01 11:03 | Outpatient (BNVA) | payer OTHER, SELFPAY | PROVIDERS: PCP Family Medicine; Visit Provider Internal Medicine ==

== ENCOUNTER 2024-06-08 09:03 | Outpatient (REF) | payer MEDICARE, SELFPAY ==
[2024-06-08 10:08] LABS: Hematocrit 43.2 % (42.0-52.0); Hemoglobin 15.1 g/dl (14.0-18.0); Mean Corpuscular Hemoglobin 31.6 pg (27.0-33.0); Mean Corpuscular Volume 90.4 fL (80.0-98.0); Mean Platelet Volume 9.1 fL (9.4-12.4); Platelet Count 230 X10*3/uL (160-400); Red Blood Count 4.78 X10*6/uL (4.60-5.80); Red Cell Distribution Width 12.8 % (11.0-16.0); White Blood Count 4.9 X10*3/uL (4.8-10.8)
[2024-06-08 10:48] LABS: Anion Gap 12 (12-20); Blood Urea Nitrogen 15 mg/dL (9-16); Calcium 9.4 mg/dL (8.4-10.2); Carbon Dioxide 28 mmol/L (22-29); Chloride 106 mmol/L (96-108); Estimated Glomerular Filt Rate > 60; Glucose Random 101 mg/dL (60-115); Potassium 4.2 mmol/L (3.3-5.1); Sodium 142 mmol/L (135-145)
[2024-06-08 11:31] LABS: Digoxin < 0.2 ng/mL (0.8-2.0)
== END 2024-06-08 09:04 | disposition home or self-care (01) ==
LOC: HO.LAB 09:03
PROVIDERS: Visit Provider Internal Medicine
DX: I50.9 Heart failure, unspecified (principal); I48.20 Chronic atrial fibrillation, unspecified
CPT/HCPCS: 36415; 80048; 80162; 85027

== ENCOUNTER → 2024-06-25 12:33 | Outpatient (REF) | payer MEDICARE, SELFPAY ==
--- NOTE | 2024-06-25 12:36 | CA_ITS ---
Transthoracic Echocardiogram Patient (Last, First, Middle): Daryl Muñoz G Gender: Male Date of : 1955 Age: 68 Procedure Date: 06/25/2024 Procedure Type: Transthoracic Echocardiogram Location: OP Height: 175.26 cm Weight: 92.53 kg BSA: 2.08 m2 Heart Rate: 85 bpm BP: 118 / 70 mmHg Ware Dresser: SB Referring MD: Franklin Reis MD Symptoms: I48.20 - Chronic atrial fibrillation, unspecified Study Quality: Adequate ECG Rhythm: Atrial Fibrillation Conclusions: - Normal left ventricular size and systolic function. There is mildly increased left ventricular wall thickness. The visually estimated ejection fraction is between 55-60%. - There is mildly decreased right ventricular systolic function. - There is mild dilatation of the ascending aorta measuring 4.10 cm and mild dilatation of the aortic arch measuring 3.50 cm. Findings Left Ventricle Normal left ventricular size and systolic function. There is mildly increased left ventricular wall thickness. The visually estimated ejection fraction is between 55-60%. There is no evidence of regional wall motion abnormalities. Diastolic function is indeterminate on the basis of available data. Right Ventricle Normal right ventricular cavity size. There is mildly decreased right ventricular systolic function. Atria The left atrium is mildly dilated. The right atrium is mildly dilated. Aortic Valve Normal aortic valve structure and function. There is no aortic valve stenosis. There is no aortic valve regurgitation. Mitral Valve The mitral valve appears normal. There is moderate mitral annular calcification. There is trace mitral valve regurgitation. There is no mitral valve stenosis. Pulmonic Valve The pulmonic valve is normal. There is trace pulmonic valve regurgitation. Tricuspid Valve Normal tricuspid valve structure. There is no tricuspid valve regurgitation. Normal right atrial pressure. There is no evidence of pulmonary hypertension. Great Vessels There is mild dilatation of the ascending aorta measuring 4.10 cm and mild dilatation of the aortic arch measuring 3.50 cm. The visualized portions of the pulmonary artery and branches are normal. Venous The inferior vena cava is normal in size and collapses greater than 50% with inspiration. Pericardium/Pleural There is no evidence of pericardial effusion. Prior Study Comparison Changes noted compared to prior study dated: 11/13/2022. Normal LVEF. Mild dilation of aorta. Measurements 2D Linear Measurements IVSd: 0.95 0.6-0.9/0.6-1.0 cm LVIDd: 4.96 3.9-5.3/4.2-5.9 cm LVIDd Index: 2.38 2.4-3.2/2.2-3.1 cm/m2 LVIDs: 3.21 2.0-3.6 cm LVPWd: 0.87 0.7-1.1 cm LA Diam: 3.90 2.7-3.8/3.0-4.0 cm LAIDs Index: 1.88 1.5-2.3 cm/m2 LV Mass: 196.94 67-162/88-224 g LV Mass Index: 94.68 43-95/49-115 g/m2 LVOT Diam: 2.30 3.0+(-)1.3 cm 2D Systolic Function EF 4C: 56.90 >55% EF 2C: 52.10 >55% EF BiP: 54.70 >55% Mitral Valve MV Pk E: 0.88 Aortic Valve AoV Pk Toney: 0.89 AoV Pk Grad: 3.00 JOSE LUIS: 4.01 LVOT LVOT Pk Toney: 0.86 LVOT Mn Toney: 0.60 LVOT VTI: 0.16 LVOT Pk Grad: 3.00 LVOT Mn Grad: 2.00 LVOT Diam: 2.30 LVOT Area: 4.15 Diastolic Function MV Pk E: 0.88 Right Ventricle TAPSE (mm): 16.50 TVS' Toney: 8.49 Tricuspid Valve TR Pk Toney: 2.42 TR Pk Grad: 23.00 RA Press: 3.00 RVSP: 26.00 Great Vessels Aorta Sinus of Valsalva: 3.60 2.0-3.5 cm Ao Asc: 4.10 2.1-3.4 cm Ao Arch: 3.50 Pulmonary Valve PV Pk Toney: 0.85 Peak PV Grad: 3.00 Updated in Other Vendor System with Status of Final Anuel Stephenson MD electronically signed on 06/27/2024 7:52:20 PM with status of Final
== END ==
LOC: HO.CARD 12:33
PROVIDERS: PCP Family Medicine; Visit Provider Internal Medicine
DX: I48.20 Chronic atrial fibrillation, unspecified (principal)
CPT/HCPCS: 93306

== ENCOUNTER → 2024-06-25 12:36 | Outpatient (BNV) | payer MEDICARE, SELFPAY | PROVIDERS: PCP Family Medicine; Visit Provider Internal Medicine Cardiovascular Disease | DX: I34.81 Nonrheumatic mitral (valve) annulus calcification (principal); I48.20 Chronic atrial fibrillation, unspecified | CPT/HCPCS: 93306 ==

== ENCOUNTER 2024-10-25 05:56 | Day surgery (SDC) | payer MEDICARE, SELFPAY ==
[2024-10-21 13:35] VITALS: BMI 30.6
--- NOTE | 2024-10-22 10:12 | HO.ANESPROP2 ---
Documented by User: Ana Cordero NP 10/22/24 10:18 HPI - Anesthesia Eval Consult details Narrative: 69yo M for Colonoscopy Afib - eliquis/dig Follows [facility] [place] Cardiology [facility] Active Problems Active Problems: All Active Problems Hyperhidrosis (Acute) Impaired fasting glucose (Acute) Tinnitus (Acute) Annual physical exam (Acute) Neuropathy (Acute) Constipated (Acute) Eczema (Acute) prison current use of anticoagulant (Acute) BPH (benign prostatic hyperplasia) (Acute) Ulcerative colitis (Acute) Obesity (BMI 30-39.9) (Acute) Chronic atrial fibrillation (Acute) Past Medical History Medical History (Updated 08/06/23 @ 10:26 by Daxa Feliciano MD) Screening for tuberculosis prison current use of anticoagulant BPH (benign prostatic hyperplasia) Ulcerative colitis Obesity (BMI 30-39.9) Chronic atrial fibrillation Family History Family History Father Cancer Mother No problems noted. Surgical History Surgical History H/O colonoscopy Hx of bilateral cataract extraction History of vasectomy Social History Social History Housing: House Are you a primary home health care provider to a significant other at home: No Do you presently have visiting nurse or other home services: No Alcohol intake: current Alcohol intake frequency: does not drink Patient Tobacco Use Status: Former Tobacco user Years Smoked: 30 +/- quit 1989 e-Cigarette/Vaping Use: Never Used Second Hand Smoke Exposure: No Use of substances other than those prescribed or required for medical reasons: No Have you been hit, kicked, punched, or otherwise hurt by someone within the past year? If so, by whom?: No Are you DNR?: No Advance Directives: No Advance Directives Information Provided: Yes Recently lost weight without trying: No Nutrition Risks: No Nutritional Risk Poor oral hygiene: No Current occupational status: retired Cognitive needs: No Hearing needs: No Vision needs: Yes Meds Allergies Allergy/AdvReac Type Severity Reaction Status Date / Time No Known Allergies Allergy Verified 10/25/24 07:07 [No Known Allergies*] Home Medications ?Medication ?Instructions ?Recorded ?Confirmed ?Last Taken ?Type metoprolol tartrate 25 mg tablet 12.5 mg PO BID 10/21/24 10/25/24 10/24/24 History Exam Height,Weight and Vital Signs: Height 5 ft 9 in Weight 93.894 kg Narrative Narrative: ECHO 2023 Conclusions: - Normal left ventricular size and systolic function. There is mildly increased left ventricular wall thickness. The visually estimated ejection fraction is between 55-60%. - There is mildly decreased right ventricular systolic function. - There is mild dilatation of the ascending aorta measuring 4.10 cm and mild dilatation of the aortic arch measuring 3.50 cm. Assessment and Plan Assessment Anesthesia Assessment: Chart Reviewed Documented by User: Dennis Eubanks MD 10/25/24 07:25 [facility] Past Medical History Medical History (Updated 08/06/23 @ 10:26 by Daxa Feliciano MD) Screening for tuberculosis prison current use of anticoagulant BPH (benign prostatic hyperplasia) Ulcerative colitis Obesity (BMI 30-39.9) Chronic atrial fibrillation Family History Family History Father Cancer Mother No problems noted. Family history of problems with anesthesia: No Surgical History Surgical History H/O colonoscopy Hx of bilateral cataract extraction History of vasectomy History of Problems with Anesthesia: No Social History Social History Housing: House Are you a primary home health care provider to a significant other at home: No Do you presently have visiting nurse or other home services: No Alcohol intake: current Alcohol intake frequency: does not drink Patient Tobacco Use Status: Former Tobacco user Years Smoked: 30 +/- quit 1989 e-Cigarette/Vaping Use: Never Used Second Hand Smoke Exposure: No Use of substances other than those prescribed or required for medical reasons: No Have you been hit, kicked, punched, or otherwise hurt by someone within the past year? If so, by whom?: No Are you DNR?: No Advance Directives: No Advance Directives Information Provided: Yes Recently lost weight without trying: No Nutrition Risks: No Nutritional Risk Poor oral hygiene: No Current occupational status: retired Cognitive needs: No Hearing needs: No Vision needs: Yes Meds Allergies Allergy/AdvReac Type Severity Reaction Status Date / Time No Known Allergies Allergy Verified 10/25/24 07:07 [No Known Allergies*] Home Medications ?Medication ?Instructions ?Recorded ?Confirmed ?Last Taken ?Type metoprolol tartrate 25 mg tablet 12.5 mg PO BID 10/21/24 10/25/24 10/24/24 History Exam Airway Mallampati Class: II TM Dist: >3cm Neck ROM: Full Loose/Missing/Broken Teeth: Yes and Lower Heart: ok. chronic afib. Lungs: ok Assessment and Plan Assessment Anesthesia Assessment: Anesthesia Plan Discussed Final Anesthetic Review Family History of Problems with Anesthesia: No History of Problems with Anesthesia: No NPO: Yes ASA Class: III Final Preanesthetic Review: No Changes in Pt Med Stat, Meds/Allgs Chart Reviewed, Consent Obtained/Reviewed and Anes Risks/Benef Reviewed Patient Risk: Intermediate Procedure Risk: Low Anesthetic Plan Anesthetic Plan: MAC: and Agree w/ Assess. and Plan Disposition: Standard PACU
[2024-10-25 06:57] VITALS: BP 115/77; PULSE 88; RESP 14; TEMP 36.7; O2SAT 97; BMI 31.0
[2024-10-25] MEDS: Lactated Ringers 1,000 ML 100 ML IVCONT (07:06)
[2024-10-25 08:34] VITALS: BP 121/69; PULSE 95; RESP 17; TEMP 36.3; O2SAT 95
[2024-10-25 08:49] VITALS: BP 119/70; PULSE 84; RESP 18; O2SAT 97
--- NOTE | 2024-10-25 08:58 | OP_ITS ---
DATE OF SERVICE: 10/25/2024 SURGEON: Otf Mtz MD INDICATIONS: The patient presents for evaluation of colorectal cancer screening and an underlying history of long-standing ulcerative colitis. Full consent was obtained from him for this, including risks of bleeding and perforation. PREOPERATIVE DIAGNOSIS: POSTOPERATIVE DIAGNOSIS: PROCEDURE PERFORMED: Colonoscopy to cecum with multiple biopsies. ESTIMATED BLOOD LOSS: COMPLICATIONS: ANESTHESIA: Monitored anesthesia care. ASSISTANTS: SPECIMENS: PREOPERATIVE DIAGNOSES: Ulcerative colitis and colorectal cancer screening. POSTOPERATIVE DIAGNOSES: Ulcerative colitis and colorectal cancer screening, rule out dysplasia, pseudopolyps, sigmoid diverticulosis. DESCRIPTION OF PROCEDURE: The patient was placed in the left lateral decubitus position. The digital rectal exam revealed no abnormalities. There was no perianal disease. The Olympus video pediatric colonoscope was entered into the rectum and advanced to the cecum with the assistance of abdominal wall pressure. Once in the cecum, I did identify normal-appearing cecal pouch with appendiceal orifice and a normal-appearing ileocecal valve. The entire cecum and ileocecal valve appeared normal. The scope was slowly withdrawn assessing all mucosal surfaces carefully. Preparation was excellent. I did not visualize any sign of active colitis, suspicious polyps, nor angiodysplasias. There were scattered pseudopolyps, particularly in the sigmoid and descending colon. There were occasional areas of scarring, but for the most part, the colonic mucosa appeared normal. I did obtain multiple biopsies in the ascending colon, transverse colon, descending colon, sigmoid colon, and rectum. There was a mild amount of sigmoid diverticulosis. In the rectum, scope was retroflexed visualizing internal hemorrhoids, but no other pathology. The rectal mucosa appeared normal. Scope was straightened and withdrawn from the patient. He tolerated the procedure well and was returned to recovery area in stable condition. IMPRESSION: 1. History of ulcerative colitis, rule out dysplasia. 2. Diverticulosis. 3. Internal hemorrhoids. PLAN: The results of biopsy will be checked. If there is no dysplasia, I would recommend a repeat colonoscopy in 5 years. He will see me 1 or 2 years for followup office visit. He has presently been stable without any medication for his colitis for many years. He was advised to resume his Eliquis tomorrow and to continue to avoid all aspirin and NSAIDs long-term. MD CHARAN Anthony/OPAL / [phone]
--- NOTE | 2024-10-25 12:27 | PM.OP ---
Brief Operative Note Date of Service: 10/25/24 Pre-op diagnosis: Ulcerative colitis Post-op diagnosis: same Procedure: Colonoscopy to the cecum with biopsies Surgeon: Otf Mtz MD Anesthesia: MAC Was an Client Technical Specialist used for this Procedure?: No Estimated blood loss (mL): 2.0 Pathology: other (A. Ascending colon B. Transverse colon C. Descending colon D. Sigmoid colon E. Rectum) Condition: stable Disposition: PACU
== END 2024-10-25 09:28 | disposition home or self-care (01) ==
PROVIDERS: PCP Family Medicine; Visit Provider Internal Medicine
PROC: 0DJD8ZZ Inspection of Lower Intestinal Tract, Via Natural or Artificial Opening Endoscopic (ICD-10-PCS; CPT 45378; principal; 2024-10-25 07:30)
DX: Z12.11 Encounter for screening for malignant neoplasm of colon (principal); K62.1 Rectal polyp; K57.30 Diverticulosis of large intestine without perforation or abscess without bleeding; K64.8 Other hemorrhoids; I48.20 Chronic atrial fibrillation, unspecified; K51.90 Ulcerative colitis, unspecified, without complications; Z79.01 Long term (current) use of anticoagulants; Z79.899 Other long term (current) drug therapy; Z98.52 Vasectomy status
CPT/HCPCS: 45380; 88305; J2003; J2704; J3010

== ENCOUNTER 2024-11-24 10:02 | Outpatient (AMB) | payer MEDICARE, SELFPAY ==
--- NOTE | 2024-11-24 10:08 | MHC.OFFVIS ---
Vital Signs 11/24/24 10:09 Height 5 ft 9 in Weight 213 lb 13.574 oz BMI 31.6 BP 112/60 Blood Pressure Location Lt brachial Position Sitting Pulse 70 Pulse Source Monitor Intake Visit Reasons: 6 mth /fup Allergies No Known Allergies [No Known Allergies*] Allergy (Verified 10/25/24 07:07) Medication List - Last Reconciled 11/24/24 by Franklin Reis MD apixaban (Eliquis) 5 mg PO BID 90 days digoxin 125 mcg PO DAILY 90 days metoprolol tartrate 12.5 mg PO BID HPI Comments Details: Daryl returns for follow-up regarding atrial fibrillation. Detected around 2018. At that time, attempted cardioversion but not successful. Since then, has been essentially in atrial fibrillation on rate control. He used to have excessive alcohol use but he states these days he is not doing that. Overall, he feels good. No cardiac symptoms whatsoever. He wants to start riding his bicycle as the weather is improving. Exercise The patient expresses a desire to engage in bicycling again, citing its absence as a contributor to recent weight gain. He typically feels better after cycling and is motivated to resume this activity once medically cleared. 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 Social History Housing: House Are you a primary client care specialist to a significant other at home: No Do you presently have visiting nurse or other home services: No Alcohol intake: current Alcohol intake frequency: does not drink Patient Tobacco Use Status: Former Tobacco user Years Smoked: 30 +/- quit 1989 e-Cigarette/Vaping Use: Never Used Second Hand Smoke Exposure: No Current occupational status: retired Cognitive needs: No Hearing needs: No Vision needs: Yes Review of Systems Const Denies weakness ENT Denies dizziness Card Denies chest pain, Denies chest pain with activity, Denies syncope, Denies rapid heart rate, Denies pedal edema, Denies edema, Denies leg edema, Denies lightheadedness, Denies palpitations, Denies dyspnea, Denies dyspnea on exertion and Denies orthopnea Resp Denies cough, Denies dyspnea and Denies dyspnea on exertion GI Denies hematochezia and Denies change in stool character Musc Denies abnormal gait, Denies muscle cramps, Denies muscle weakness, Denies numbness, Denies radiating pain into limb and Denies tingling Neuro Denies abnormal gait, Denies dizziness, Denies syncope, Denies numbness, Denies tingling and Denies weakness Endo Denies palpitations Physical Exam Vital Signs: Last Vital Signs Pulse 70 11/24/24 10:09 BP 112/60 11/24/24 10:09 BMI result Body Mass Index 31.6 Const General: comfortable and no acute distress Orientation/consciousness: patient oriented x3 HEENT Other: Unremarkable Head: Yes normal to inspection Neck Neck: Yes normal visual inspection Chest Chest palpation & inspection: normal inspection of the chest Resp Auscultation: clear to auscultation bilaterally Cardio Palpation: normal PMI Heart sounds: S1 normal heart sound present, S2 normal heart sound present, no gallops, no murmurs and no rubs GI Palpation (GI): Soft to palpation Back/Spine/Pelvis Other: unremarkable Skin General skin exam: no rashes or lesions noted Neuro General: patient oriented x3 Extrem General: Yes normal to inspection Psych Mental Status: mental status grossly normal Office Procedures EKG Details: EKG with underlying atrial fibrillation at 70/Min; rightward axis; inferior T inversions. [id number]-[id number], Complete Assessment & Plan Assessment & Plan (1) Persistent atrial fibrillation: Code(s): I48.19 - Other persistent atrial fibrillation Category: Medical Plan: Continue metoprolol and digoxin. Sleep study in the past without any clear evidence of CELIA. In the last echocardiogram, LVEF is 55-60%. Mildly depressed right ventricular systolic function. Left atrium mildly dilated. 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 Plan Due to the EKG findings of inferior T inversions in his plan to start riding his bicycle, we can plan on exercise stress test to assess further. Total time spent including review of data, counseling, documentation, coordination of care-32 minutes. Orders: Orders CA stress test Today I48.20 - Chronic atrial fibrillation, unspecified, R07.2 - Precordial pain NM cardiolite stress test Today I48.20 - Chronic atrial fibrillation, unspecified, R07.2 - Precordial pain Patient Instructions: - Schedule the stress test as instructed. - Plan to resume cycling post-clearance from stress test results. - To contact us with any ongoing concerns or cardiac symptoms. Coding Level of Care Code Est Pt Level 4 (22434) Complex EM visit Add On G2211 Diagnoses Persistent atrial fibrillation I48.19 [facility] current use of anticoagulant Z79.01 CPT Codes EKG - CPT: 92374-Wobinxrgltvqdhrob, Complete ([id number])
[2024-11-24 10:09] VITALS: BP 112/60; PULSE 70; BMI 31.6
--- OUTSIDE RECORDS SUMMARY | 2024-11-24 11:34 | XMS_ITS ---
Author Organization [facility] Address [address] [place] [id number] Care Team Providers Care Digital Marketing Officer Name Role Phone JEF ESPINAL, VITALIY Primary Care Provider Unavailab Vitaliy Garcia Unavailable [phone] Allergies No Known Allergies REASON FOR VISIT Patient presents today for a COLON SCREENING Medications Medication SIG (Take, Route, Frequency, Duration) Notes Start Date End Date Status Eliquis 5 MG TAKE 1 TABLET BY CAROL TH TWICE A DAY Oral once a day Active Metoprolol Tartrate 25 MG 1/2 tablet wit h food Orally Twice a day Active Digoxin 125 MCG 1 tablet Orally for 30 day(s) Active Social History Alcohol Screen Question Answer Notes Did you have a drink containing alcohol in the p ast year? No Points 0 Interpretation Negative Section Notes: Nonsmoker; occasional alcoho l Vital Signs Blood pressure systolic 00 mm Hg 06/29/20 24 Blood pressure diastolic 00 mm Hg 024 Height 69 in 06/29/2024 Weight 207 lbs 06/29/2024 BMI 30.57 kg/m2 06/29/2024 Encounters Encounter Location Date Provider Diagnosis [facility] [address] [place] [id number] 06/29/2024 Vitaliy Mtz Ulcerative colitis without complications, unspecified location K51.90 and Encounter for screening for malignant neoplasm of colon Z12.11 Assessments Encounter Date Diagnosis (ICD Code) Assessment Notes Treatment Notes Treatment Clinical Notes Section Notes 06/29/2024 Ulcerative colitis without complications, unspecified location (ICD-10 - K51.90) Stop the Eliquis for 3 days before the colonoscopy. Overall, Daryl appears quite well. His underlying ulcerative colitis remains in clinical remission on no specific treatment. As such, we will continue to observe things In that regard. I did recommend a followup colonoscopy for further screening given his long-standing history of ulcerative colitis and his last colonoscopy being over 5 years ago. We did review the rationale for that regard to colorectal cancer prevention and/or early detection. Full consent was obtained for this, including risks of bleeding and perforation. The procedure will be done monitored anesthesia care. He was given the below instructions regarding adjustment of his medications for the procedure. Daryl was comfortable with this plan. Thank you again for allowing me to participate in Daryl's care. I shall continue to keep you advised of his progress. 06/29/2024 Encounter for screening for malignant neoplasm of colon (ICD-10 - Z12.11) Overall, Daryl appears quite well. His underlying ulcerative colitis remains in clinical remission on no specific treatment. As such, we will continue to observe things In that regard. I did recommend a followup colonoscopy for further screening given his long-standing history of ulcerative colitis and his last colonoscopy being over 5 years ago. We did review the rationale for that regard to colorectal cancer prevention and/or early detection. Full consent was obtained for this, including risks of bleeding and perforation. The procedure will be done monitored anesthesia care. He was given the below instructions regarding adjustment of his medications for the procedure. Daryl was comfortable with this plan. Thank you again for allowing me to participate in Daryl's care. I shall continue to keep you advised of his progress. Plan Of Treatment Treatment Notes Assessment Notes Ulcerative colitis without c omplications, unspecified location Stop the Eliquis for 3 days before the colonoscopy. Future Test Test Name Order Date COLONOSCOPY 06/29/2024 Next Appt Details Follow Up: prn, Reason: Progress Notes * DARYL BEEDOB: [birth year] (68 yo M)Acc No.[id number]:06/29/2024 Progress Notes Patient:?DARYL BEE Provider:?Vitaliy Mtz MD :1955???Age:68 Y???Sex:Male Thee e:06/29/2024 Address:[address] [place] [address] Pcp:VITALIY FUCHS MD Subjective: * Chief Complaints: * ???Patient presents today fo r a COLON SCREENING * HPI: ???incontinence:? I saw Daryl in the office today for evaluation of his underlying history of ulcerative colitis and discussion of colorectal cancer screening. ?I last saw Daryl in August of 2022 at which time we had reviewed his history of underlying ulcerative colitis. Since that time has been doing very well and is not on any specific medication for his colitis. He has not been on any medications for his colitis for well over a decade now. His bowel movements have remained very regular without any signs of bleeding. He denies any significant diarrhea. He enjoys a good appetite and denies any history of heartburn or dysphagia. He denies any nausea, vomiting, nor early satiety. He denies abdominal pain, signs of jaundice, nor unintentional weight loss. He denies any known family history of colorectal cancer. ?Laboratories at the end of May revealed a normal CBC, normal chemistries, and normal renal function. He had a normal liver profile in July of 2023. His last colonoscopy screening was in November of 2018, at which time there was no evidence of any polyps, active colitis, nor any dysplasia on the biopsies. * ROS:?General/Constitutional:?Change in appetite?denies.?Chills?denies.?Fatigue?denies.?Ophthalmologic:?Patient denies? Negative..?ENT:?Patient denies?Negative..?Respiratory:?Patient denies?No coughing/hemoptysis..?Cardiovascular:?Patient denies? No chest pain/orthopnea..?Gastrointestinal:?Comments?See HPI for details.?Genitourinary:?Patient denies? No dysuria/hematuria..?Musculoskeletal:?Patient denies? No specific arthralgias/myalgias..?Skin:?Patient denies?No rash/pruritus..?Neurologic:?Patient denies? No headaches/seizures..?Psychiatric:?Patient denies?Negative..? * Medical History:? * Surgical History:?vasectomy left eye cataract 4right eye cataract * Hospitalization/Major Diagno stic Procedure:?No Hospitalization History. * Family History:?Father: dece ased.?Mother: 92 yrs, afib.?Siblings: The patient has two siblings with some type of colitis.Afib.? No hx of colon cancer. Sister has colitis . * Social History:?Tobacco Use:?Tobacco Use/Smoking?Are you a: nonsmoker.?Drugs/Alcohol:?Alcohol Screen?Did you have a drink containing alcohol in the past year??No,?Points?0,?Interpretation?Negative.?Miscellaneous:?Marital status: . Occupation: [employer]/ retired jun 2021. ???Nonsmoker; occasional alcohol. * Medications:?TakingDigoxin 1 25 MCG Tablet 1 tablet Orally Metoprolol Tartrate 25 MG Tablet 1/2 tablet with food Orally Twice a dayEliquis 5 MG Tablet TAKE 1 TABLET BY MOUTH TWICE A DAY Oral once a dayTaking Digoxin 125 MCG Tablet 1 tablet Orally Taking Metoprolol Tartrate 25 MG Tablet 1/2 tablet with food Orally Twice a dayTaking Eliquis 5 MG Tablet TAKE 1 TABLET BY MOUTH TWICE A DAY Oral once a dayDiscontinuedTriamcinolone Acetonide 0.5 % Cream 1 application Externally Two times a WeekMedication List reviewed and reconciled with the patientDiscontinued Triamcinolone Acetonide 0.5 % Cream 1 application Externally Two times a WeekMedication List reviewed and reconciled with the patient * Allergies:?N.K.D.A.yes[Aller gies Verified] Objective: * Vitals:?Wt: 207 lbs, Ht: 69 in, BMI:30.57 Index, BP: 00/00 mm Hg. * Examination: ???General Examination: ?GENERAL APPEARANCE:?pleasant, well nourished, well developed, in no acute distress.?EYES:?sclera non-icteric.?ORAL CAVITY:?mucosa moist.?NECK/THYROID:?no cervical lymphadenopathy, neck supple.?SKIN:?nonjaundiced, no spider angiomata..?HEART:?S1, S2 normal.?LUNGS:?clear to auscultation bilaterally.?ABDOMEN:?normal bowel sounds, no guarding or rigidity, no hepatosplenomegaly, no masses palpable, soft, nontender, nondistended..?EXTREMITIES:?no edema.?NEUROLOGIC:?alert and oriented.? Assessment: * Assessment: 1.?Ulcerative colitis withou t complications, unspecified location - K51.90 (Primary)?2.?Encounter for screening for malignant neoplasm of colon - Z12.11? Overall, Daryl appears quit e well. His underlying ulcerative colitis remains in clinical remission on no specific treatment. As such, we will continue to observe things In that regard. I did recommend a followup colonoscopy for further screening given his long-standing history of ulcerative colitis and his last colonoscopy being over 5 years ago. We did review the rationale for that regard to colorectal cancer prevention and/or early detection. Full consent was obtained for this, including risks of bleeding and perforation. The procedure will be done monitored anesthesia care. He was given the below instructions regarding adjustment of his medications for the procedure. Daryl was comfortable with this plan. Thank you again for allowing me to participate in Daryl's care. I shall continue to keep you advised of his progress. Plan: * Treatment: Notes: Stop the Eliquis for 3 days before the colonoscopy.??2.?Encounter for screening for malignant neoplasm of colon?Procedure: COLONOSCOPY (Ordered for 06/29/2024)* with MACsched for 10/25/24 at 7:30 ammiralax * Procedure Codes:?3017F COLOR ECTAL CA SCREEN DOC [id number] TOBACCO [id number] BP SCR NOT PRFRM REC REASON NOS * Preventive Medicine:? ??Counseling:?Care goal follow-up plan:?Above Normal BMI Follow-up?Giving encouragement to exercise,?BMI management provided?Yes.? ??Screenings:?Fall Risk Screening?Fall Risk Assessment:?No falls in the past year,?Screening:?No falls in the past year,?Assessment:?Not performed, no reason specified,?Plan of Care:?Not documented, no reason specified.? * Follow Up:?prn * * Sign off status: Completed true * Provider:?Vitaliy Mtz MD Date:? 024 Generated for Pedro perla/Ashlyn/eTransmitting on:?11/24/2024 11:33 AM EDT History and Physical Notes * HPI (History of Present Illness) Category Sub-Category Detail Notes Category Not es incontinence I saw Daryl in the office today for evaluation of his underlying history of ulcerative colitis and discussion of colorectal cancer screening. I last saw Daryl in August of 2022 at which time we had reviewed his history of underlying ulcerative colitis. Since that time has been doing very well and is not on any specific medication for his colitis. He has not been on any medications for his colitis for well over a decade now. His bowel movements have remained very regular without any signs of bleeding. He denies any significant diarrhea. He enjoys a good appetite and denies any history of heartburn or dysphagia. He denies any nausea, vomiting, nor early satiety. He denies abdominal pain, signs of jaundice, nor unintentional weight loss. He denies any known family history of colorectal cancer. Laboratories at the end of May revealed a normal CBC, normal chemistries, and normal renal function. He had a normal liver profile in July of 2023. His last colonoscopy screening was in November of 2018, at which time there was no evidence of any polyps, active colitis, nor any dysplasia on the biopsies. Examination Category Sub-Category Detail Notes Category Not es General Examination GENERAL APPEARANCE: pleasant , well nourished, well developed, in no acute distress EYES: sclera non-icteric NECK/THYROID: no cervical lymphade nopathy, neck supple HEART: S1, S2 normal LUNGS: clear to auscultatio n bilaterally ABDOMEN: normal bowel sounds, no guarding or rigidity, no hepatosplenomegaly, no masses palpable, soft, nontender, nondistended. NEUROLOGIC: alert and oriented SKIN: nonjaundiced, no spi radha angiomata. EXTREMITIES: no edema ORAL CAVITY: mucosa moist
--- OUTSIDE RECORDS SUMMARY | 2024-11-24 11:34 | XMS_ITS ---
Author Organization [facility] Address [address] [place] [phone] Care Team Providers Care Crime Scene Photographer Name Role Phone VITALIY FUCHS MD Primary Care Provider UnavailVitaliy [facility] [phone] REASON FOR VISIT ulcerative colitis, screening Encounters Encounter Location Date Provider Diagnosis [facility] Outpatient [address], [place] [phone] 10/25/2024 Vitaliy Mtz Colon cancer scree greyson [...] * HARDY BEEDOB: [birth year] (69 yo M)Acc No.[id number]:10/25/2024 COLON WITH MAC Patient:?HARDY BEE Provider:Naomi Mtz MD :1955???Age:69 Y???Sex:Male Thee e:10/25/2024 Address:[address] [place], [place] [address] Pcp:VITALIY FUCHS MD Subjective: * Chief Complaints: * ???1. Ulcerative colitis, sc amarilis. * Medical History:? Objective: * Vitals:? Assessment: * Assessment: 1.?Colon cancer screening - Z12.11 (Primary)???2.?Ulcerative colitis - K51.90???3.?Diverticulosis of large intestine without perforation or abscess without bleeding - K57.30???4.?Other hemorrhoids - K64.8??? Plan: * Treatment: * Procedure Codes:?39075 COLON OSCOPY AND BIOPSY, Modifiers: PT , 0529F INTRVL 3+YRS PTS CLNSCP DOCD, 0528F RCMND FLW-UP 10 YRS DOCD * * The named appointment provid er may or may not be the originator of this progress note, and it is not deemed complete until electronically signed by the appointment provider. Sign off status: Pending * Provider:?Vitaliy Mtz MD Date:? 025 Generated for Pedro perla/Ashlyn/Kearaitting on:?11/24/2024 11:34 AM EDT
--- OUTSIDE RECORDS SUMMARY | 2024-11-24 11:34 | XMS_ITS | Patient Health Record ---
Author Organization [facility] Address [address] [place] [address] Care Team Providers Care Accounting/Finance Tutor Name Role Phone VITALIY HOLLINGSWORTH MD Primary Care Provider UnavailVitaliy Schulte Unavailable [phone] Allergies No Known Allergies Results Component Value Reference Range Notes Pathology (Not yet reviewed by provider) Interpretation: Performing Lab:[facility], [address] [place] [phone] Notes/Report: Name: Daryl Muñoz Age/Sex: 69/M : 1955 Unit#: [id number] Attend Dr: Vitaliy Mtz MD Re10/25/24 Status : [facility] Location: [facility] Disch: SPEC : [id number] REC STATUS: CASEY FAJARDO NUM: [id number] REGINE: 10/25/[address] [facility] [address]: Vitaliy Mtz MD ENTERED: 10/25/24 SP TYPE: Surgical OTHR DR: Vitaliy Hollingsworth DO ORDERED: HE Stain/15 , Gross Micro L4/5 Diagnosis A. Colon, ascending, biopsy: Colonic mucosa with no specific change; no colitis, granulomas or dysplasia. B. Colon, transverse , biopsy: Colonic mucosa with no specific change; no colitis, granulomas or dysplasia. C. Colon, descending , biopsy: Colonic mucosa with no specific change; no colitis, granulomas or dysplasia. D. Colon, sigmoid, b iopsy: Colonic mucosa with no specific change; no colitis, granulomas or dysplasia. E. Colon, rectum, bi opsy: Hyperplastic polyp, and colonic mucosa with no specific change; no colitis/p roctitis, granulomas or dysplasia (endoscopic correlation necessary). Clinical History Pre-Op Dx: Screening , ulcerative colitis Post-Op Dx: Ulcerati ve colitis, diverticulosis Microscopic Description Microscopic sections reviewed. Material Received A. Ascending colon b x's, h/o ulcerative colitis, r/o dysplasia B. Transverse colon bx's, h/o ulcerative colitis, r/o dysplasia C. Descending colon bx's, h/o ulcerative colitis, r/o dysplasia D. Sigmoid colon bx' s, h/o ulcerative colitis, r/o dysplasia E. Rectal colon bx's , h/o ulcerative colitis, r/o dysplasia Gross Description Received in five parts. Part A: Received in formalin labeled ?ascending colon bx's, history ulcerative colitis, rule out dysplasia? are 7 granda irregular tissue fragments ranging from 0.15-0.2 cm, submitted in toto in a cassette labeled A. Part B: Received in formalin labeled ?transverse colon bx's history ulcerative colitis, rule out dysplasia are several granda and granda-pink irregular and rectangular tissue fragments CONTINUED ON NEXT PAGE Name: Daryl Muñoz Age/Sex: 69/M : 1955 Unit#: [id number] Attend Dr: Vitaliy Mtz MD Re10/25/24 Status : [facility] Location: [facility] Disch: SPEC : [id number] RECD : 10/25/24 STATUS: CASEY [facility] NUM: [id number] REGINE: 10/25/[address] [facility] [address]: Vitaliy Mtz MD ENTERED: 10/25/24- 32 SP TYPE: Surgical OTHR DR: Vitaliy Hollingsworth DO ORDERED: HE Stain/15 , Gross Micro L4/5 Gross Description (Continued) ranging from 0.1 to 0.35 cm, submitted in toto in a cassette labeled C. Part C: Received in formalin labeled ?descending colon bx's, history ulcerative colitis, rule out dysplasia? are several granda and granda-pink irregular tissue fragments ranging from minute to 0.25 cm, s ubmitted in toto in a cassette labeled C. Part D: Received in formalin labeled ?sigmoid bx's, history ulcerative colitis, rule out dysplasia? a re 7 granda and granda-pink irregular and rectangular tissue fragments ranging from minute to 0.3 cm, matta bmitted in toto in a cassette labeled D. Part E: Received in formalin labeled ?rectal bx's, history ulcerative colitis, rule out dysplasia? a re are 5 granda and granda-pink irregular and rectangular tissue fragments ranging from 0.15-0.4 cm, matta bmitted in toto in a cassette labeled E. CEDS Copies To: Vitaliy [address] [place] [id number] Vitaliy Mtz MD [address] [place] [id number] Signed (si gnature on file) Sowmya Ralf 10/26/24 1152 END OF REPORT Reason For Referral No Information Medications Medication SIG (Take, Route, Frequency, Duration) Notes Start Date End Date Status Eliquis 5 MG TAKE 1 TABLET BY [facility] TWICE A DAY Oral once a day Active Metoprolol Tartrate 25 MG 1/2 tablet wit h food Orally Twice a day Active Digoxin 125 MCG 1 tablet Orally for 30 day(s) Active Immunizations Vaccine Route Administration Date Status Comme nts Influenza Unknown 04/11/2022 Administered Influenza Unknown 09/10/2018 Refused Social History Alcohol Screen Question Answer Notes Did you have a drink containing alcohol in the p ast year? No Points 0 Interpretation Negative Section Notes: Nonsmoker; occasional beer a nd cigar Nonsmoker; occasional alcoho l Nonsmoker; occasional alcoho l Nonsmoker; occasional alcoho l Problems Problem Type SNOMED Code ICD Code Onset Dates Problem Status W/U Status Risk Notes Problem 560224527 Encounter for screening for malignant neoplasm of colon (Z12.11) Active confirmed Problem 68918200 Ulcerative colitis without complications, unspecified location (K51.90) Active confirmed Vital Signs Blood pressure diastolic 00 mm Hg 06/29/2024 Height 69 in 06/29/2024 Blood pressure systolic 00 mm Hg 06/29/2024 Weight 207 lbs 06/29/2024 BMI 30.57 kg/m2 06/29/2024 Encounters Encounter Location Date Provider Diagnosis [facility] [place] [address] [place], [place] [phone] 10/25/2024 Vitaliy Mtz Colon cancer screeni ng Z12.11 ; Ulcerative colitis K51.90 ; Diverticulosis of large intestine without perforation or abscess without bleeding K57.30 and Other hemorrhoids K64.8 [facility] [address] [place] [address] 06/29/2024 Vitaliy Mtz Ulcerative colitis without complications, unspecified location K51.90 and Encounter for screening for malignant neoplasm of colon Z12.11 Assessments Encounter Date Diagnosis (ICD Code) Assessment Notes Treatment Notes Treatment Clinical Notes Section Notes 10/25/2024 Colon cancer screening (ICD-10 - Z12.11) 10/25/2024 Ulcerative colitis (ICD-10 - K51.90) 06/29/2024 Encounter for screening for malignant neoplasm [...] keep you advised of his progress. 06/29/2024 Ulcerative colitis without complications, unspecified location [...] to keep you advised of his progress. 10/25/2024 Diverticulosis of large intestine without perforation or abscess without bleeding (ICD-10 - K57.30) 10/25/2024 Other hemorrhoids (ICD-10 - K64.8) Plan Of Treatment Pending Test Test Name Order Date Pathology 10/25/2024 Future Test Test Name Order Date COLONOSCOPY 04/22/2013 COLONOSCOPY 09/10/2018 COLONOSCOPY 06/29/2024 Insurance Providers Payer Name Payer Address Payer Phone Subscriber Number Group Number Insured Name Patient Relationship to Insured Coverage Start Date Coverage End Date [facility] [address] [place] [address] [id number] CRISTALDARYL Self - patient is the insured Medical (General) History Medical History History ICD Code Most recent colonoscopy Apr was negative for any active colitis, polyps, and all biopsies were negative for dysplasia. Ulcerative colitis diagnosed at age 26-- on Azulfidine until approx. 2006 Denies [place],DM,CVA,Lung disease,renal dise ase Hx of [id number]. Reis Colonoscopy in 11/2018--no ad enomas, no dysplasia--no active colitis; there were some inflammatory polyps and pseudopolyps Surgical History Surgery Date(Month/Year) vasectomy left eye cataract 2023 right eye cataract
== END 2024-11-24 10:33 | disposition home or self-care (01) ==
PROVIDERS: PCP Family Medicine; Visit Provider Internal Medicine
DX: I48.19 Other persistent atrial fibrillation (principal); Z79.01 Long term (current) use of anticoagulants
CPT/HCPCS: 93010; 99214; G2211

== ENCOUNTER → 2024-11-24 10:02 | Outpatient (BNVA) | payer MEDICARE, SELFPAY | PROVIDERS: PCP Family Medicine; Visit Provider Internal Medicine | DX: I48.19 Other persistent atrial fibrillation (principal); R07.2 Precordial pain; Z79.01 Long term (current) use of anticoagulants | CPT/HCPCS: 93005; 99212 ==

== ENCOUNTER → 2025-01-21 08:26 | Outpatient (REF) | payer MEDICARE, SELFPAY ==
--- NOTE | ~2025-01-21 | NM_ITS ---
EXERCISE MYOCARDIAL PERFUSION STUDY INDICATION: Precordial chest pain to evaluate for myocardial ischemia TECHNIQUE: The patient was brought in for an exercise perfusion study on 01/21/2025. Patient performed exercise as per Vincent protocol and was injected 30 mCi of sestamibi once target heart rate was achieved. Images were obtained using the SPECT gamma camera interlaced with the gating device. Images were obtained in supine position. Resting perfusion study was performed on 01/24/2025. Patient was administered [30 mCi of sestamibi intravenously at rest. Images were then obtained in supine position. Images were processed with the software and compared side to side in short axis, horizontal long axis and vertical long axis views. FINDINGS: Raw images were reviewed The stress perfusion study showed nonattenuated images show mildly reduced uptake in the distal anterior and adjacent anterolateral wall of the LV myocardium. Attenuated corrected images show similar findings.. The gated study was not performed with stress. LV cavity is normal in size. Resting study shows no change in perfusion pattern compared to stress perfusion study. Gating at rest reveals normal systolic wall motion with ejection fraction at 74%. The findings are consistent with normal myocardial perfusion. NM/NM cardiolite stress test IMPRESSION: 1. Myocardial perfusion imaging study shows normal myocardial perfusion. 2. Gated LVEF is 74%. 3. Transient ischemic dilatation not present. EKG revealed shows no ischemia. Electronically signed by: Sundar Velarde MD 01/24/2025 04:06 PM EDT
--- OUTSIDE RECORDS SUMMARY | 2025-01-21 08:33 | XMS_ITS | Patient Health Record ---
Author Organization [facility] Address [address] [place] [address] Care Team Providers Care Load Checker Name Role Phone VITALIY HOLLINGSWORTH MD Primary Care Provider UnavailVitaliy Schulte Unavailable [phone] Allergies No Known Allergies Results Component Value Reference Range Notes Pathology (Not yet reviewed by provider) Interpretation: Performing Lab:[facility] [place], [address] [place] [phone] Notes/Report: Name: Daryl Muñoz Age/Sex: 69/M : 1955 Unit#: [id number] Attend Dr: Vitaliy Mtz MD Re10/25/24 Status : [facility] Location: [facility] Disch: SPEC : [id number] REC STATUS: CASEY FAJARDO NUM: [id number] REGINE: 10/25/24 [facility] DR: Vitaliy Mtz MD ENTERED: 10/25/24 [...] Daryl Muñoz Age/Sex: 69/M : 1955 Unit#: [id number] Attend Dr: Vitaliy Mtz MD Re10/25/24 Status : [facility] Location: [facility] Disch: SPEC : [id number] RECD : 10/25/24 STATUS: [facility]Y [facility] NUM: [id number] REGINE: 10/25/24 [facility] DR: Vitaliy Mtz MD ENTERED: 10/25/24- [...] Copies To: Vitaliy [address] [place] [id number] Vitaliy Mtz MD [address] [place] [id number] Signed (si gnature on file) Sowmya [place] 10/26/24 1152 END OF REPORT Reason For Referral No Information Medications Medication SIG (Take, Route, Frequency, Duration) Notes Start Date End Date Status Eliquis 5 MG TAKE 1 TABLET BY [facility] TWICE A DAY Oral once a [...] Problem Status W/U Status Risk Notes Problem [id number] Encounter for screening for malignant neoplasm of colon (Z12.11) Active confirmed Problem 06910828 Ulcerative colitis without complications, unspecified location (K51.90) Active confirmed Vital Signs Blood pressure diastolic 00 mm Hg 06/29/2024 Height 69 in 06/29/2024 Blood pressure systolic 00 mm Hg 06/29/2024 Weight 207 lbs 06/29/2024 BMI 30.57 kg/m2 06/29/2024 Encounters Encounter Location Date Provider Diagnosis [facility] [place] [address] [place], [place] [phone] 10/25/2024 Vitaliy Mtz Colon cancer screeni ng Z12.11 ; Ulcerative colitis K51.90 ; Diverticulosis of large intestine without perforation or abscess without bleeding K57.30 and Other hemorrhoids K64.8 [facility] [address] [place] [address] 06/29/2024 Vitaliy Mtz Ulcerative colitis without complications, [...] Insured Coverage Start Date Coverage End Date [facility] [address] [place] [address] [id number] CRISTALDARYL Self - patient is the insured Medical (General) History Medical History History ICD Code Most recent colonoscopy Apr was negative for any active colitis, polyps, and all biopsies were negative for dysplasia. Ulcerative colitis diagnosed at age 26-- on Azulfidine until approx. 2006 Denies [place],DM,CVA,Lung disease,renal dise ase Hx of [id number]. Reis Colonoscopy in 11/2018--no ad enomas, no dysplasia--no active colitis; there were some inflammatory polyps and pseudopolyps Surgical History Surgery Date(Month/Year) vasectomy left eye cataract 2023 right eye cataract
--- NOTE | 2025-01-21 08:38 | CA_ITS ---
Acquisition Time: 2025-01-21 09:04:19 Total Exercise Time: 00:05:31 Test Indications: CHEST PAIN Medications: SEE CHART Protocol: ROSE Max HR: 166 BPM 110% of Pred: 150 BPM Max BP: 160/68 mmHG Max Work Load: 7.0 METS Exercise stress test with exercise 5 mins 31 secs of Rose Protocol, achieving 112% MPHR, with reports of mild SOB, no chest pain, with isolated PVCs, ventricular couplets, with normotensive response to exercise. Without EKG changes meeting criteria for ischemia. Baseline Afib. In recovery, breathing returned to baseline. Nuclear images pending. Test reviewed with Dr. Velarde. Referred By: Franklin Reis Electronically Signed By: Luis Shaffer
== END ==
LOC: HO.CARD 08:26
PROVIDERS: Visit Provider Internal Medicine
DX: R07.2 Precordial pain (principal); I48.20 Chronic atrial fibrillation, unspecified
CPT/HCPCS: 78452; 93017; A9500

== ENCOUNTER → 2025-01-21 08:38 | Outpatient (BNV) | payer MEDICARE, SELFPAY | DX: R07.2 Precordial pain (principal) | CPT/HCPCS: 78452; 93016; 93018 ==

== ENCOUNTER 2025-05-31 10:11 | Outpatient (AMB) | payer MEDICARE, SELFPAY ==
--- OUTSIDE RECORDS SUMMARY | 2024-10-25 03:30 | XMS_ITS ---
Author Organization [facility] Address [address] [place] [id number] Care Team Providers Care Speck Dyer Name Role Phone VITALIY FUCHS MD Primary Care Provider Vitaliy Fung [facility] [phone] REASON FOR VISIT ulcerative colitis, screening Encounters Encounter Location Date Provider Diagnosis [facility] [place] Outpatient [address], [place] [id number] 10/25/2024 Vitaliy Mtz Colon cancer scree greyson [...] * HARDY BEEDOB: 5 (69 yo M)Acc No.[id number]:10/25/2024 COLON WITH MAC Patient: Sumeet HARDY COMER Provider: Deann Mtz MD :1955 A ge:69 Y S ex:Male Date:10/25/2024 Address:[address] [place] [address] [id number] Pcp:VITALIY FUCHS MD Subjective: * Chief Complaints: [...] 10/25/2024 Generated for Pedro perla/Ashlyn/Eliudsmitting on: 1 11:58 AM EDT
[2025-05-31 10:12] VITALS: BP 114/60; PULSE 71; BMI 31.0
--- NOTE | 2025-05-31 10:12 | MHC.OFFVIS ---
Vital Signs 05/31/25 10:12 Height 5 ft 9 in Weight 209 lb 14.081 oz BMI 31.0 BP 114/60 Blood Pressure Location Lt brachial Pulse 71 Pulse Source Pulse Oximeter Intake Visit Reasons: 6 month f/up stress test Complementary Health Therapists Required: No Accompanied by: Self / Same As Patient Allergies No Known Allergies (No Known Allergies*) Allergy (Verified 05/31/25 10:15) Medication List - Last Reconciled 05/31/25 by Franklin Reis MD apixaban (Eliquis) 5 mg PO BID 90 days digoxin 125 mcg PO DAILY 90 days metoprolol tartrate 25 mg PO BID HPI Comments Details: Daryl returns for follow-up regarding atrial fibrillation. Detected around 2018. At that time, attempted cardioversion but not successful. Since then, has been essentially in atrial fibrillation on rate control. He used to have excessive alcohol use but he states these days he is not doing that. Since last seen, he states he is feeling good. No new concerns. He is also exercising regularly without any issues. [facility] Medical History (Updated 05/31/25 @ 10:22 by Franklin Reis MD) Screening for tuberculosis prison current use of anticoagulant BPH (benign prostatic hyperplasia) Ulcerative colitis Obesity (BMI 30-39.9) Chronic atrial fibrillation Surgical History H/O colonoscopy Hx of bilateral cataract extraction History of vasectomy Family History Father Cancer Mother No problems noted. Social History Housing: House Are you a primary home visit field care manager to a significant other at home: No Do you presently have visiting nurse or other home services: No Alcohol intake: current Alcohol intake frequency: does not drink Patient Tobacco Use Status: Former Tobacco user Years Smoked: 30 +/- quit 1989 e-Cigarette/Vaping Use: Never Used Second Hand Smoke Exposure: No Current occupational status: retired Cognitive needs: No Hearing needs: No Vision needs: Yes Review of Systems Const Denies daytime sleepiness, Denies difficulty sleeping, Denies snoring, Denies stops breathing during sleep and Denies weakness Card Denies chest pain, Denies rapid heart rate, Denies irregular heart rhythm, Denies claudication, Denies leg edema, Denies lightheadedness, Denies palpitations, Denies dyspnea, Reports dyspnea on exertion, Denies orthopnea, Denies paroxysmal nocturnal dyspnea and Denies slow heart rate Resp Denies cough, Denies dyspnea, Reports dyspnea on exertion and Denies snoring GI Reports no additional complaints, Denies hematochezia, Denies change in stool character and Denies dyspepsia Musc Denies abnormal gait, Denies muscle weakness and Denies numbness Neuro Denies abnormal gait, Denies numbness and Denies weakness Endo Denies palpitations Physical Exam Vital Signs: Last Vital Signs Pulse 71 05/31/25 10:12 BP 114/60 05/31/25 10:12 BMI result Body Mass Index 31.0 Const General: comfortable and no acute distress Orientation/consciousness: patient oriented x3 HEENT Other: Unremarkable Head: Yes normal to inspection Neck Neck: Yes normal visual inspection Chest Chest palpation & inspection: normal inspection of the chest Resp Auscultation: clear to auscultation bilaterally Cardio Palpation: normal PMI Heart sounds: S1 normal heart sound present, S2 normal heart sound present, no gallops, no murmurs and no rubs GI Palpation (GI): Soft to palpation Back/Spine/Pelvis Other: unremarkable Skin General skin exam: no rashes or lesions noted Neuro General: patient oriented x3 Extrem General: Yes normal to inspection Psych Mental Status: mental status grossly normal Assessment & Plan Assessment & Plan (1) Persistent atrial fibrillation: Code(s): I48.19 - Other persistent atrial fibrillation Category: Medical Plan: Continue metoprolol and digoxin. Continue Eliquis. Sleep study in the past without any clear evidence of CELIA. In the last echocardiogram, LVEF is 55-60%. Mildly depressed right ventricular systolic function. Left atrium mildly dilated. Check digoxin level. Check BMP. Check Holter before next visit. (2) prison current use of anticoagulant: Code(s): Z79.01 - prison (current) use of anticoagulants Category: Medical Plan: Remains on Eliquis. (3) Ascending aorta enlargement: Code(s): I77.89 - Other specified disorders of arteries and arterioles Category: Medical Plan: In the echocardiogram, ascending aortic size 4.1 cm. Are size 3.5 cm. Recheck before next visit. Plan Discussion Notes During the visit, we discussed the patient's exercise tolerance and cardiovascular health. I recommended follow-up blood work. The patient was advised to withhold digoxin before the blood test to ensure accurate results. Patient was informed and verbally consented to the use of an ambient scribe for clinic note documentation during this visit. Orders: Orders Basic Metabolic Panel Today I48.20 - Chronic atrial fibrillation, unspecified Digoxin Today I48.20 - Chronic atrial fibrillation, unspecified CA echo transthoracic complete 1 Year I77.89 - Other specified disorders of arteries and arterioles ECG 3 day holter monitor 1 Year I48.20 - Chronic atrial fibrillation, unspecified Patient Instructions: - Schedule blood work and echocardiogram as recommended. - Do not take digoxin on the morning of the blood test. - Continue regular exercise but monitor heart rate. Coding Level of Care Code Est Pt Level 4 (30332) Complex EM visit Add On G2211 Diagnoses Persistent atrial fibrillation I48.19 prison current use of anticoagulant Z79.01 Ascending aorta enlargement I77.89
--- OUTSIDE RECORDS SUMMARY | 2025-05-31 11:58 | XMS_ITS | Patient Health Record ---
Author Organization [facility] Address [address] [place] [address] Care Team Providers Care Pad Tufter Name Role Phone VITALIY FUCHS MD Primary Care Provider Vitaliy Fung Unavailable [phone] Allergies No Known Allergies Results Component Value Reference Range Notes Pathology (Not yet reviewed by provider) Interpretation: Performing Lab:[facility], [address] [place] [phone] Notes/Report: Reason For Referral No Information Medications Medication SIG (Take, Route, Frequency, Duration) Notes Start Date End Date Status Eliquis 5 MG TAKE 1 TABLET BY [facility] TWICE A DAY Oral once a day Active Metoprolol Tartrate 25 MG 1/2 tablet wit h food Orally Twice a day Active Digoxin 125 MCG 1 tablet Orally; Dur ation: 30 day(s) Active Immunizations Vaccine Route Administration [...] Problem Status W/U Status Risk Notes Problem Screening for malignant neoplasm of colon (811803948) Encounter for screening for malignant neoplasm of colon (Z12.11) Active confirmed Problem Ulcerative colitis (67894429) Ulcerative colitis without complications, unspecified location (K51.90) Active confirmed Vital Signs Blood pressure diastolic 00 mm Hg 06/29/2024 Height 69 in 06/29/2024 Blood pressure systolic 00 mm Hg 06/29/2024 Weight 207 lbs 06/29/2024 BMI 30.57 kg/m2 06/29/2024 Encounters Encounter Location Date Provider Diagnosis [facility] [place] [address] [place] [phone] 10/25/2024 Vitaliy Mtz Colon cancer screeni ng Z12.11 ; Ulcerative colitis K51.90 ; Diverticulosis of large intestine without perforation or abscess without bleeding K57.30 and Other hemorrhoids K64.8 [facility] [address] [place] [address] 06/29/2024 Vitaliy Mtz Ulcerative colitis without complications, [...] Insured Coverage Start Date Coverage End Date [facility] [address] [place] [address] [id number] DARYL BEE Self - patient is the insured Medical (General) History Medical History History ICD Code Most recent colonoscopy Apr was negative for any active colitis, polyps, and all biopsies were negative for dysplasia. Ulcerative colitis diagnosed at age 26-- on Azulfidine until approx. 2005 Denies [place],DM,CVA,Lung disease,renal dise ase Hx of [id number]. Reis Colonoscopy in 11/2018--no ad enomas, no dysplasia--no active colitis; there were some inflammatory polyps and pseudopolyps Surgical History Surgery Date(Month/Year) vasectomy left eye cataract 2023 right eye cataract
== END 2025-05-31 10:26 | disposition home or self-care (01) ==
PROVIDERS: PCP Physician Assistant; Visit Provider Internal Medicine
DX: I48.19 Other persistent atrial fibrillation (principal); Z79.01 Long term (current) use of anticoagulants; I77.89 Other specified disorders of arteries and arterioles
CPT/HCPCS: 99214; G2211

== ENCOUNTER → 2025-05-31 10:11 | Outpatient (BNVA) | payer MEDICARE, SELFPAY | PROVIDERS: PCP Physician Assistant; Visit Provider Internal Medicine | DX: I48.19 Other persistent atrial fibrillation (principal); G47.33 Obstructive sleep apnea (adult) (pediatric); Z99.89 Dependence on other enabling machines and devices; Z79.01 Long term (current) use of anticoagulants; I77.89 Other specified disorders of arteries and arterioles | CPT/HCPCS: 99212 ==

== ENCOUNTER 2025-06-01 13:16 | Outpatient (REF) | payer MEDICARE, SELFPAY ==
--- OUTSIDE RECORDS SUMMARY | 2024-10-25 03:30 | XMS_ITS ---
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 Name Role Phone VITALIY FUCHS MD Primary Care Provider Vitaliy Fung [facility] [phone] REASON FOR VISIT ulcerative colitis, screening Encounters Encounter Location Date Provider Diagnosis [facility] [place] [place] Outpatient [address], [place] [id number] 10/25/2024 Vitaliy Mtz Colon cancer scree greyson Z12.11 ; Ulcerative colitis K51.90 ; Diverticulosis of large intestine without perforation or abscess without bleeding K57.30 and Other hemorrhoids K64.8 Assessments Encounter Date Diagnosis (ICD Code) Assessment Notes Treatment Notes Treatment Clinical Notes Section Notes 10/25/2024 Colon cancer screening (ICD-10 - Z12.11) 10/25/2024 Ulcerative colitis (ICD-10 - K51.90) 10/25/2024 Diverticulosis of large intestine without perforation or abscess without bleeding (ICD-10 - K57.30) 10/25/2024 Other hemorrhoids (ICD-10 - K64.8) Plan Of Treatment No Information Progress Notes * HARDY BEEDOB: 5 (69 yo M)Acc No.[id number]:10/25/2024 COLON WITH MAC Patient: Sumeet HARDY COMER Provider: Deann Mtz MD :1955 A ge:69 Y S ex:Male Date:10/25/2024 Address:[address] [place] [address] [id number] Pcp:VITALIY FUCHS MD Subjective: * Chief Complaints: * 1 . Ulcerative colitis, screening. * Medical History: Objective: * Vitals: Assessment: * Assessment: 1. C olon cancer screening - Z12.11 (Primary) 2 . U lcerative colitis - K51.90 3 . D iverticulosis of large intestine without perforation or abscess without bleeding - K57.30 4 . O ther hemorrhoids - K64.8 Plan: * Treatment: * Procedure Codes: 4 5380 COLONOSCOPY AND BIOPSY, Modifiers: PT , 0529F INTRVL 3+YRS PTS CLNSCP DOCD, 0528F RCMND FLW-UP 10 YRS DOCD * * The named appointment provid er may or may not be the originator of this progress note, and it is not deemed complete until electronically signed by the appointment provider. Sign off status: Pending * Provider: Deann Mtz MD Date: 0 10/25/2024 Generated for Pedro perla/Ashlyn/Eliudsmitting on: 1 06:42 PM EDT
[2025-06-01 14:28] LABS: Anion Gap 11 (12-20); Blood Urea Nitrogen 18 mg/dL (9-16); Calcium 9.8 mg/dL (8.4-10.2); Carbon Dioxide 31 mmol/L (22-29); Chloride 104 mmol/L (96-108); Estimated Glomerular Filt Rate > 60; Potassium 4.8 mmol/L (3.3-5.1); Sodium 141 mmol/L (135-145)
[2025-06-01 14:30] LABS: Digoxin 0.3 ng/mL (0.8-2.0)
--- OUTSIDE RECORDS SUMMARY | 2025-06-01 18:42 | XMS_ITS | Patient Health Record ---
Author Organization [facility] Address [address] [place] [address] Care Team Providers Care Loom Fixer Name Role Phone VITALIY FUCHS MD Primary Care Provider Vitaliy Fung Unavailable [phone] Allergies No Known Allergies Results Component Value Reference Range Notes Pathology (Not yet reviewed by provider) Interpretation: Performing Lab:[facility], [address] [place] [phone] Notes/Report: Reason For Referral No Information Medications [...] Problem Screening for malignant neoplasm of colon (864364807) Encounter for screening for malignant neoplasm of colon (Z12.11) Active confirmed Problem Ulcerative colitis (18313895) Ulcerative colitis without complications, unspecified location (K51.90) Active confirmed Vital Signs Blood pressure diastolic 00 mm Hg 06/29/2024 Height 69 in 06/29/2024 Blood pressure systolic 00 mm Hg 06/29/2024 Weight 207 lbs 06/29/2024 BMI 30.57 kg/m2 06/29/2024 Encounters Encounter Location Date Provider Diagnosis [facility] [place] [address] [place], [place] [phone] 10/25/2024 Vitaliy Mtz Colon cancer screeni ng Z12.11 ; Ulcerative colitis K51.90 ; Diverticulosis of large intestine without perforation or abscess without bleeding K57.30 and Other hemorrhoids K64.8 [facility] [address] [place] [address] 06/29/2024 Vitaliy Mtz Ulcerative colitis without complications, [...] Insured Coverage Start Date Coverage End Date [facility] [address] [place] [address] [id number] DARYL BEE Self - patient is the insured Medical (General) History Medical History History ICD Code Most recent colonoscopy Apr was negative for any active colitis, polyps, and all biopsies were negative for dysplasia. Ulcerative colitis diagnosed at age 26-- on Azulfidine until approx. 2005 Denies [place],DM,CVA,Lung disease,renal dise ase Hx of [id number]. Reis Colonoscopy in 11/2018--no ad enomas, no dysplasia--no active colitis; there were some inflammatory polyps and pseudopolyps Surgical History Surgery Date(Month/Year) vasectomy left eye cataract 2023 right eye cataract
== END 2025-06-01 13:17 | disposition home or self-care (01) ==
LOC: HO.LAB 13:16
PROVIDERS: PCP Internal Medicine; Visit Provider Internal Medicine
DX: I48.20 Chronic atrial fibrillation, unspecified (principal)
CPT/HCPCS: 36415; 80048; 80162